=== PATIENT | female | born 1960 | race Caucasian/White ===

== ENCOUNTER 2017-03-01 17:09 | Inpatient (IN) | payer MEDICARE ==
--- OUTSIDE RECORDS SUMMARY | 2017-03-01 17:12 | XMS | Clinical Summary ---
:[address] [facility] Address [address] [place] [address] Phone Care Team Providers Name Role Phone , Primary Care Provider Unavailable Allergies Not on File Current Medications Not on file Active Problems Not on file Social History Tobacco Use Types Packs/Day Years Used Date Never Assessed Sex Assigned at Date Recorded Not on file Last Filed Vital Signs Not on file Plan of Treatment Not on file Results Not on filefrom Last 3 Months
[2017-03-01 18:35] LABS: #Monocytes 0.3 thou/uL (0.11-0.59); #Neutrophils 1.8 thou/uL (1.40-6.50); %Basophils 0.4 % (0.0-1.0); %Eosinophils 1.2 % (0.0-10.0); %Lymphocytes 31.1 % (21.0-51.0); Hematocrit 28.6 % (36.0-47.0); Mean Platelet Volume 6.5 fL (7.4-10.4); Red Blood Cell (RBC) Count 2.88 mill/uL (4.20-5.40); White Blood Cell (WBC) Count 3.1 thou/uL (4.8-10.8)
[2017-03-01] MEDS ORDERED: Fentanyl 100 MCG/2 ML VIAL ONE (18:39)
[2017-03-01 18:53] LABS: Lactic Acid - Sepsis 0.4 mmol/L (0.5-2.2)
[2017-03-01 19:10] LABS: Troponin I Less than 0.010 ng/mL (< 0.028)
--- NOTE | 2017-03-01 20:24 | PDOC.EVN ---
Event Note - Event Note Event Note: [id number] h&p dictated 1. Acute COPD exacerbation 2. H/O HTN 3. Acute bronchitis plan: see orders
[2017-03-01] MEDS ORDERED: Acetaminophen 325 MG TAB PO PRN (21:03)
[2017-03-01] MEDS ORDERED: Ondansetron HCl/PF 4 MG/2 ML Vial IVP PRN (21:03)
[2017-03-01] MEDS ORDERED: Ondansetron ODT 4 MG TAB SL PRN (21:03)
[2017-03-01] MEDS ORDERED: HYDROcodone/Acetaminophen 5/325 mg Tablet PO PRN (21:07)
[2017-03-01] MEDS ORDERED: Guaifenesin DM 100-10/5 ML UDCUP PO PRN (21:09)
[2017-03-01] MEDS ORDERED: traMADol HCl 50 MG TAB PO PRN (21:10)
[2017-03-01] MEDS ORDERED: Albuterol Sulfate 1.25 MG/3 ML NEB NEB PRN (21:10)
[2017-03-01] MEDS ORDERED: Sodium Chloride 0.45% 1,000 ML IV SCH (21:15)
[2017-03-01] MEDS: Sodium Chloride 0.9% 1,000 ML IV SCH (21:30)
[2017-03-01 21:55] LABS: Troponin I Less than 0.010 ng/mL (< 0.028)
[2017-03-01] MEDS: cefTRIAXone\\ROCEPHIN 1 GM in Sodium Chloride 0.9% 100 ML IVPB SCH (22:46)
[2017-03-01 23:12] VITALS: BMI 27.2
[2017-03-02 00:59] LABS: Troponin I Less than 0.010 ng/mL (< 0.028)
[2017-03-02 05:39] LABS: Band 14 % (5-11); Hematocrit 30.1 % (36.0-47.0); Mean Platelet Volume 6.8 fL (7.4-10.4); Neutrophil 58 % (42-75); Red Blood Cell (RBC) Count 3.06 mill/uL (4.20-5.40); White Blood Cell (WBC) Count 1.9 thou/uL (4.8-10.8)
[2017-03-02 05:45] LABS: Anion Gap 13 mmol/L (10-20); BUN (Urea Nitrogen) 6 mg/dL (9.8-20.1); Calc. Creatinine Clearance 139 mL/min (70-130); Calcium 8.3 mg/dL (7.8-10.44); Carbon Dioxide 21 mmol/L (22-29); Chloride 110 mmol/L (98-107); Estimated GFR-MDRD Greater than 90
[2017-03-02] MEDS: Levothyroxine Sodium 75 MCG TAB PO SCH (05:51)
--- NOTE | 2017-03-02 06:36 | HP ---
CHIEF COMPLAINT: Cough and dyspnea. HISTORY OF PRESENT ILLNESS: The patient is a 56-year-old female with past medical history of hypert ension, now came to the ER complaining of cough and dyspnea, cough started 3 days back, associated w ith sputum production and chest congestion, sputum yellow in color, complains of low-grade fever and chills. The patient has had dyspnea for the last few days or so, the patient went to outside ER wh ere the patient was found to be oxygen sats around 87%, so the patient was transferred here for furt her evaluation. The patient complains of some diffuse body aches. Denies any nausea, denies any vo miting at this time, but complains of vomiting with the cough. Denies any diarrhea. Denies any blo shantelle stools. PAST MEDICAL HISTORY: Hypertension. PAST SURGICAL HISTORY: Cholecystectomy, gastric ulcer repair, and . SOCIAL HISTORY: Positive for smoking, denies alcohol, denies any drugs. MEDICATIONS: Reviewed. FAMILY HISTORY: Denies any heart problems. REVIEW OF SYSTEMS: Constitutional: Positive for low-grade fever and chills. Eyes: Vision problem s. Ears: Denies any hearing loss. Neck: Denies any neck pain. Cardiovascular system: Denies an y chest pain. Respiratory System: Positive for dyspnea. Positive for cough and sputum production. Cranial Nerve System: Denies syncope. Musculoskeletal: Positive for diffuse body aches. Psych iatric: Denies anxiety. Integument: Denies any rash. All other review of systems are reviewed an d are negative. PHYSICAL EXAMINATION: CONSTITUTIONAL/VITAL SIGNS: At the time of H\T\P performed, blood pressure is 140/70, pulse ox 97% on room air, afebrile, respiration rate 18, and pulse ox 97%. GENERAL: This patient appears comfortable and appears tired and denies patent. HEENT: Nose normal. Ears normal. Teeth intact. Tongue is moist. NECK: Supple. No JVD. CARDIOVASCULAR: S1, S2 present. Regular rate and rhythm, no murmurs, no rubs, no gallops. RESPIRATORY SYSTEM: Positive for wheezing. Positive for rhonchi and crackles present. No accessor y muscle use seen. GASTROINTESTINAL: Abdomen is soft, nontender, no guarding, no organomegaly, no masses felt. MUSCULOSKELETAL: No edema. INTEGUMENTARY: No rashes seen. PSYCHIATRIC: Mood Appropriate at this time. CRANIAL NERVES INTACT: Cranial nerves intact. Follows commands. Strength intact, sensory intact. LABORATORY DATA: At the time of H\T\P performed, white count 3.1, hemoglobin 9, platelet count is 1 46. Lactic acid 0.4. BMP showed sodium 139, potassium 4.3, chloride 109, CO2 of 22, BUN 9, and cre atinine 0.7. CT chest done in the outside ER showed interlobar thickening, possible pneumonia. Tro ponin is 0.010. EKG, no acute ST changes. ASSESSMENT AND PLAN: The patient is a 56-year-old male: 1. Acute bronchitis. Plan to start the patient on breathing treatments. Plan to monitor. Plan t o start patient on IV antibiotics. Follow the patient closely. 2. Possible new onset acute chronic obstructive pulmonary disease exacerbation. Plan to start the patient on breathing treatments, IV steroids, and we will monitor the patient closely. 3. Nicotine abuse. Will place nicotine patch. 4. History of hypertension. Continue home blood pressure meds. 5. Pain, p.r.n. pain meds. The case was discussed in detail with the patient. The patient is FULL CODE.
[2017-03-02] MEDS: Heparin 5,000 UNITS/ML VIAL SC SCH ×3 (08:22→20:34)
[2017-03-02] MEDS ORDERED: Metoprolol Tartrate 25 MG TAB PO SCH (09:00)
[2017-03-02] MEDS ORDERED: Lisinopril 10 MG TAB PO SCH (09:00)
[2017-03-02] MEDS: Ribavirin 200 MG CAP PO SCH ×2 (09:01→20:36)
[2017-03-02] MEDS: Sodium Chloride 0.9% 1,000 ML IV SCH (09:01)
[2017-03-02] MEDS ORDERED: Sodium Chloride 0.9% 1,000 ML IV SCH (10:10)
[2017-03-02] MEDS ORDERED: [UNRECOGNIZED DRUG - REMARK] INH PRN (10:23)
[2017-03-02] MEDS ORDERED: METHadone HCl 10 MG TAB PO SCH (12:30)
[2017-03-02] MEDS: Lisinopril 10 MG TAB PO SCH (20:35)
[2017-03-02] MEDS: Metoprolol Tartrate 25 MG TAB PO SCH (20:35)
[2017-03-02] MEDS ORDERED: Atorvastatin Calcium 10 MG TAB PO SCH (21:00)
[2017-03-02] MEDS ORDERED: traZODone HCl 50 MG TAB PO SCH (21:00)
[2017-03-02] MEDS: cefTRIAXone\\ROCEPHIN 1 GM in Sodium Chloride 0.9% 100 ML IVPB SCH (21:25)
--- NOTE | 2017-03-02 21:27 | PRG ---
DATE OF SERVICE: 03/03/2017 SUBJECTIVE: This patient's shortness of breath is much better, still coughing though, complains of some headache and no fever, no chills. OBJECTIVE: VITAL SIGNS: Blood pressure is 183/81, temperature afebrile, pulse is 98, respirations 20. GENERAL: Patient is lying in bed, in no apparent distress right now. HEENT: Atraumatic, normocephalic. Pupils are equally round, react to light. Extraocular movements intact. Mucous membranes moist. NECK: Supple. No JVD. CHEST: Some coarse breath sounds and some end expiratory wheezes. There are no rales or rhonchi. HEART: S1, S2. No murmurs or gallops. ABDOMEN: Soft. EXTREMITIES: No cyanosis, clubbing or edema. Distal pulses present. NEUROLOGIC: Alert, awake, oriented. No cranial deficits. No sensorimotor deficits. LABORATORY DATA: Potassium is 4.1, creatinine is 0.6. WBC count is 1.9, hemoglobin is 9.5. ASSESSMENT AND PLAN: 1. Acute chronic obstructive pulmonary disease exacerbation with acute bronchitis. Continue antibi otics, neb treatments and steroids. The patient is doing well, will transition to p.o. steroids in the morning. 2. Tobacco use. The patient has been counseled. 3. Chronic pain, on methadone. We will continue that. Patient complains of some headache. We erma l use Tylenol p.r.n. 4. Hypertension. We will monitor the patient and increased blood pressure medications as needed. Lisinopril has been increased to 10 mg p.o. b.i.d. 5. Hypothyroidism, stable. 6. Sequential compression devices for deep venous thrombosis prophylaxis. I will follow the labs and do the need.
[2017-03-03 05:19] LABS: #Lymphocytes 0.4 thou/uL (1.20-3.40); #Monocytes 0.1 thou/uL (0.11-0.59); #Neutrophils 2.1 thou/uL (1.40-6.50); %Basophils 0.6 % (0.0-1.0); %Eosinophils 1.3 % (0.0-10.0); %Monocytes 3.9 % (0.0-10.0); Hematocrit 29.2 % (36.0-47.0); Mean Platelet Volume 7.5 fL (7.4-10.4); Red Blood Cell (RBC) Count 2.99 mill/uL (4.20-5.40); White Blood Cell (WBC) Count 2.7 thou/uL (4.8-10.8)
[2017-03-03] MEDS: Levothyroxine Sodium 75 MCG TAB PO SCH (05:20)
[2017-03-03 05:32] LABS: Anion Gap 12 mmol/L (10-20); BUN (Urea Nitrogen) 8 mg/dL (9.8-20.1); Calc. Creatinine Clearance 139 mL/min (70-130); Calcium 8.7 mg/dL (7.8-10.44); Carbon Dioxide 18 mmol/L (22-29); Chloride 113 mmol/L (98-107); Estimated GFR-MDRD Greater than 90
[2017-03-03] MEDS ORDERED: METHadone HCl 10 MG TAB PO SCH (09:00)
[2017-03-03] MEDS ORDERED: Spiriva 18 MCG CAP (Box of 5 Caps) INH SCH (09:00)
[2017-03-03] MEDS: Heparin 5,000 UNITS/ML VIAL SC SCH (09:13)
[2017-03-03] MEDS: Lisinopril 10 MG TAB PO SCH (09:14)
[2017-03-03] MEDS: Metoprolol Tartrate 25 MG TAB PO SCH (09:16)
[2017-03-03] MEDS: Ribavirin 200 MG CAP PO SCH (09:17)
[2017-03-03] MEDS ORDERED: Ondansetron HCl/PF 4 MG/2 ML Vial IVP PRN (10:09)
[2017-03-03 11:14] VITALS: TEMP 98.3
[2017-03-03 11:16] VITALS: BP 181/80
--- NOTE | 2017-03-03 22:51 | DIS ---
DATE OF ADMISSION: 03/01/2017 DATE OF DISCHARGE: 03/03/2017 DIAGNOSES ON DISCHARGE: 1. Acute bronchitis. 2. Acute on chronic obstructive pulmonary disease exacerbation. 3. Hypertension. 4. Tobacco use. 5. Chronic pain, on methadone. 6. Hypothyroidism. DISCHARGE MEDICATIONS: The patient's discharge medications include all home medications plus Levaqu in 500 mg p.o. daily for 7 days. BRIEF HOSPITAL COURSE: A 56-year-old, pleasant lady came into the hospital with shortness of breath . Please refer to the admitting physician's H\T\P for further details. She was diagnosed to have s ome upper respiratory tract infection in the form of acute bronchitis and some wheezes and exacerbat ion of COPD. She was put on IV steroids, antibiotics, and neb treatments. She improved with this t reatment. Right now, she is medically stable. She is moving around and feels at baseline. She is asked to quit smoking. The patient is right now medically stable to be discharged. PHYSICAL EXAMINATION: VITAL SIGNS: The patient at the time of discharge had blood pressure of 166/77, pulse of 80, temper ature afebrile, breathing comfortably on room air. GENERAL: The patient was lying in bed, in no apparent distress. HEENT: Atraumatic and normocephalic. Pupils are equally round and reactive to light. Extraocular movements intact. Mucous membranes are moist. NECK: Supple. No JVD. CHEST: Breath sounds heard. No rales or rhonchi. HEART: S1 and S2. No murmurs or gallops. ABDOMEN: Soft. EXTREMITIES: No cyanosis, clubbing, or edema. Distal pulses present. NEUROLOGIC: Alert, awake, oriented. No cranial deficits. No sensorimotor deficits. The patient is right now medically stable to be discharged home with outpatient followup with PCP. She was asked to come back to the emergency room in case symptoms recur. Total time for this discharge took 35 minutes.
== END 2017-03-03 14:00 | disposition home or self-care (01) | DRG 192 ==
LOC: ERS 17:09 → 2NO 21:10
PROVIDERS: ADMIT Internal Medicine; ATTEND Internal Medicine
DX: J44.0 Chronic obstructive pulmonary disease with (acute) lower respiratory infection (principal); I10 Essential (primary) hypertension; F17.210 Nicotine dependence, cigarettes, uncomplicated; J44.1 Chronic obstructive pulmonary disease with (acute) exacerbation; J20.9 Acute bronchitis, unspecified; G89.29 Other chronic pain; F11.99 Opioid use, unspecified with unspecified opioid-induced disorder; E03.9 Hypothyroidism, unspecified; Z86.19 Personal history of other infectious and parasitic diseases; Z86.73 Personal history of transient ischemic attack (TIA), and cerebral infarction without residual deficits; I25.2 Old myocardial infarction; R09.02 Hypoxemia
CPT/HCPCS: 36415; 36416; 80048; 83605; 85007; 85025; 85027; 93005; 94640; 96374; A4216; G8978-GP-CJ; G8979-GP-CJ; G8980-GP-CJ; J0360; J0696; J1644; J1956; J2270; J2405; J2920; J3010; J7050; J7620

== ENCOUNTER 2017-07-08 13:00 | Inpatient (IN) | payer MEDICARE ==
[2017-07-08 14:13] LABS: #Eosinphils 0.1 thou/uL (0.0-0.7); #Lymphocytes 1.6 thou/uL (1.20-3.40); #Monocytes 0.5 thou/uL (0.11-0.59); %Basophils 0.7 % (0.0-1.0); %Lymphocytes 21.6 % (21.0-51.0); %Monocytes 6.5 % (0.0-10.0); %Neutrophils 69.2 % (42.0-75.0); Hemoglobin 7.7 g/dL (12.0-16.0); Mean Corpuscular HGB CONC 28.8 g/dL (32.0-36.0); Mean Corpuscular Hemoglobin 23.7 pg (27.0-31.0); Mean Corpuscular Volume 82.1 fl (81.0-99.0); Mean Platelet Volume 8.2 fL (7.4-10.4); Platelet Count 186 thou/uL (130-400); RBC Distribution Width 16.9 % (11.5-14.5); Red Blood Cell (RBC) Count 3.26 mill/uL (4.20-5.40); White Blood Cell (WBC) Count 7.2 thou/uL (4.8-10.8)
[2017-07-08 14:34] LABS: ALT (SGPT) Less than 7 U/L (8-55); AST (SGOT) 12 U/L (5-34); Albumin 3.8 g/dL (3.5-5.0); Alkaline Phosphatase 106 U/L (40-150); Anion Gap 13 mmol/L (10-20); BUN (Urea Nitrogen) 8 mg/dL (9.8-20.1); Bilirubin, Total 0.5 mg/dL (0.2-1.2); Calc. Creatinine Clearance 0 mL/min (70-130); Calcium 9.2 mg/dL (7.8-10.44); Carbon Dioxide 22 mmol/L (22-29); Chloride 106 mmol/L (98-107); Estimated GFR-MDRD 80; Globulin 3.1 g/dL (2.4-3.5); Glucose 75 mg/dL (70-105); Lipase 16 U/L (8-78); Potassium 3.9 mmol/L (3.5-5.1); Protein, Total 6.9 g/dL (6.0-8.3); Sodium 137 mmol/L (136-145)
[2017-07-08 15:51] LABS: PTT 36.3 SEC (22.9-36.1); Prothrombin Time 13.7 SEC (12.0-14.7)
[2017-07-08] MEDS ORDERED: Pantoprazole 40 MG VIAL ONE (16:01)
[2017-07-08 16:07] LABS: CKMB 2.3 ng/mL (0-6.6); Troponin I Less than 0.010 ng/mL (< 0.028)
--- NOTE | 2017-07-08 16:08 | RAD ---
CHEST ONE VIEW 07/08/17 HISTORY: Hematemesis. COMPARISON: 08/13/16. FINDINGS: Cardiac silhouette is magnified by projection. Pulmonary vasculature remains upper limits of normal. Lungs are hyperinflated. Mediastinum is midline with aortic calcification. There is no confluent air space consolidation or evidence of free subdiaphragmatic gas. Calcified granulomata are consistent wi th healed granulomatous disease. decontamination technician leads overlie the chest. IMPRESSION: 1. COPD. 2. Atherosclerosis. POS: H
[2017-07-08] MEDS ORDERED: Zolpidem Tartrate 5 MG TAB PO PRN (19:21)
[2017-07-08] MEDS ORDERED: Artificial Tears 18 DROP/0.9 ML EA EYE PRN (19:21)
[2017-07-08] MEDS ORDERED: hydrALAZINE 20 MG/ML VIAL SLOW IVP PRN (19:21)
[2017-07-08] MEDS ORDERED: Ondansetron ODT 4 MG TAB PO PRN (19:21)
[2017-07-08] MEDS ORDERED: Pantoprazole 80 MG in Sodium Chloride 0.9% 100 ML IVPB SCH (19:21)
[2017-07-08] MEDS ORDERED: Loperamide HCl 2 MG CAP PO PRN (19:21)
[2017-07-08] MEDS ORDERED: Eucerin (Mineral Oil/Petrolatum,White) 30 gm Jar TOP PRN (19:21)
[2017-07-08] MEDS ORDERED: Acetaminophen 325 MG TAB PO PRN (19:21)
[2017-07-08] MEDS ORDERED: Mag-Al 1200 mg/1200 mg/30 ML UDCUP PO PRN (19:21)
[2017-07-08] MEDS ORDERED: Ondansetron HCl/PF 4 MG/2 ML Vial IVP PRN (19:21)
[2017-07-08] MEDS ORDERED: Senokot 8.6 MG TAB PO PRN (19:21)
[2017-07-08] MEDS ORDERED: Diabetic Tussin 200 MG/10 ML UDCUP PO PRN (19:21)
[2017-07-08] MEDS ORDERED: Chloraseptic Spray 180 ml Bottle PO PRN (19:21)
[2017-07-08] MEDS ORDERED: cloNIDine 0.1 MG TAB PO PRN (19:21)
[2017-07-08] MEDS ORDERED: Sodium Chloride 0.65% Nasal 44 ML BOT EA NARE PRN (19:21)
[2017-07-08] MEDS ORDERED: Milk Of Magnesia 30 ML UDCUP PO PRN (19:21)
[2017-07-08] MEDS ORDERED: Loratadine 10 MG TAB PO PRN (19:21)
[2017-07-08] MEDS: Morphine 2 MG/ML SYRINGE SLOW IVP PRN (20:07)
[2017-07-08] MEDS: Sodium Chloride 0.9% 1,000 ML IV SCH (20:10)
[2017-07-08] MEDS ORDERED: Nicotine 14 MG PATCH TD SCH (20:30)
[2017-07-08] MEDS ORDERED: PROVENTIL INHALER 6.7 G (200 INHALATIONS) INH PRN (21:06)
[2017-07-08] MEDS ORDERED: traMADol HCl 50 MG TAB PO PRN (21:06)
[2017-07-08] MEDS: Mometasone/Formoterol 120 PUFF INHALER INH SCH (21:27)
--- NOTE | 2017-07-08 22:15 | HP ---
PRIMARY CARE PHYSICIAN: Alonso Dodson M.D. REASON FOR ADMISSION: Acute upper gastrointestinal bleed, anemia due to acute blood loss. HISTORY OF PRESENT ILLNESS: A 57-year-old female who has history of hypothyroidism, hypertension, ga stroesophageal reflux disease, and COPD who was experiencing generalized weakness, fatigue for the la st 2 months. The patient was having intermittent epigastric pain, nausea, and vomiting. Yesterday, the patient had episode of vomiting. She vomited two times and each time she reports about cup amoun t of blood came out. She did not have any further hematemesis. She denies any episodes of vomiting followed by hematemesis. She did not have any black tarry stool because she did not have any bowel m ovement. She was feeling dizziness, lightheadedness. The patient is taking naproxen for her chronic arthritic pain, but she reports that she requires at least 2 or 3 times naproxen per week. As the p atient's symptoms were not getting better and she was feeling day by day more weak that is why she ma de appointment with primary care physician and primary care physician did routine blood test after th at she was told to come to the ER because of low blood count. Today, she decided to come to the ER p er primary care physician request. She denies any bright red blood per rectum. She denies any hemat ochezia. She does not have any history of esophageal varices, but she reports that she was diagnosed with peptic ulcer disease in the past and she required transfusion in the past. She also had endosc opy by Dr. Cheng several years ago. She had remote history of alcoholism, but she is currently not dr inking alcohol. She is smoking about 1 pack per day. The patient was having about 8/10 epigastric p ain which was getting worse with food, associated with nausea and intermittent vomiting. She denies any fever or chills. She denies any UTI symptoms. She denies any chest pain. She denies any syncop e. She denies any fall. She denies any other chronic pain. She denies any focal neurological sympt oms. ALLERGIES: The patient is allergic to REGLAN. CURRENT HOME MEDICATIONS: Proventil HFA 2 puffs q.4 hourly, clonidine 0.3 mg p.o. t.i.d., Nexium 20 mg p.o. daily, lisinopril 20 mg p.o. daily, Spiriva 18 mcg inhalation daily, tramadol 50 mg q.4 hourl y p.r.n., Ambien 5 mg p.o. at bedtime. REVIEW OF SYSTEMS: The following complete review of systems was negative, unless otherwise mentioned in the HPI or below: Constitutional: Weight loss or gain, ability to conduct usual activities. Skin: Rash, itching. Eyes: Double vision, pain. ENT/Mouth: Nose bleeding, neck stiffness, pain, tenderness. Cardiovascular: Palpitations, dyspnea on exertion, orthopnea. Respiratory: Shortness of breath, wheezing, cough, hemoptysis, fever or night sweats. Gastrointestinal: Poor appetite, abdominal pain, heartburn, nausea, vomiting, constipation, or diarr hea. Genitourinary: Urgency, frequency, dysuria, nocturia. Musculoskeletal: Pain, swelling. Neurologic/Psychiatric: Anxiety, depression. Allergy/Immunologic: Skin rash, bleeding tendency. Please see my HPI for pertinent positives and negatives. All other review of systems reviewed and ne gative except as mentioned in the HPI. PAST MEDICAL HISTORY: Hypertension, hypothyroidism, history of peptic ulcer disease with history of upper gastrointestinal bleed, history of OR in 2015, history of TIA, history of hepatitis C which was treated, COPD, tobacco abuse disorder, osteoarthritis. PAST SURGICAL HISTORY: Cholecystectomy, hysterectomy, and upper endoscopy. PAST PSYCHIATRIC HISTORY: Reviewed and negative. SOCIAL HISTORY: The patient is smoking about 1 pack per day. She is a former alcoholic. She quit d rinking alcohol for 5 years ago. She is a former drug abuser and abuses marijuana, but she is clean for the last several years. She lives at home by herself. FAMILY HISTORY: No strong family history of premature coronary artery disease, stroke or cancer. EMERGENCY ROOM COURSE: The patient is given Protonix 80 mg push. PHYSICAL EXAMINATION: VITAL SIGNS: On arrival, blood pressure 139/76, pulse 88, respiratory rate 18, temperature 98.2, sat uration 97% on room air, and weight 86.1 kilograms. GENERAL: The patient is in mild distress due to epigastric abdominal discomfort. HEENT: Head: Normocephalic, atraumatic. Eyes: Conjunctivae pale. Extraocular muscle intact. No nystagmus. Pupils round, reactive to light. Normal eyelids. ENT: Oropharynx within normal limits. Moist mucous membranes. No oral lesion. No pharyngeal erythema. No exudate. NECK: Supple, no JVD, no thyromegaly, no carotid bruit, no meningeal signs of irritation. LUNGS: Clear to auscultation without any rhonchi or rales. CARDIAC: S1, S2 regular. No murmur, no gallop, no rub. ABDOMEN: Epigastric tenderness, no Emerson sign. No occult blood in stool examination. No peritonea l signs, no guarding, no rigidity, no rebound, no suprapubic tenderness. BACK: Unremarkable, no CVA tenderness. EXTREMITIES: Upper extremities: Passive movement of all joints are normal. Lower extremities: No edema. Good peripheral pulsation. SKIN: No skin rash, otherwise pallor present. HEMATOLOGIC: No lymphadenopathy. PSYCHIATRIC: Normal affect. NEUROLOGIC: Nonfocal examination. The patient is moving all four limbs, plantar bilateral flexor. SIGNIFICANT LABORATORY DATA: EKG based on my review reveals normal sinus rhythm, left atrial enlarge ment. Chest x-ray based on my review, no acute cardiopulmonary process. CBC: WBC of 7.2, hemoglobi n 7.7, platelet 186. INR 1.0. BMP: Sodium 137, potassium 3.9, chloride 106, carbon dioxide 22, ani on gap 13, BUN 8, creatinine 0.75, glucose 75, calcium 9.2. LFT: AST 12, ALT less than 7, alkaline phosphatase 106, albumin 3.8, lipase 16, CK 77, CK-MB 2.3, troponin I less than 0.010. ASSESSMENT/IMPRESSION: 1. Nausea and vomiting. 2. Epigastric abdominal pain. 3. Hematemesis. 4. Anemia due to acute blood loss. 5. Tobacco abuse disorder. 6. Intermittent nonsteroidal antiinflammatory drug abuse. 7. Gastroesophageal reflux disease/peptic ulcer disease. 8. Chronic obstructive pulmonary disease. PLAN: 1. Full admission to medical floor. We will resume patient's home medication for high blood pressur e. Gastroenterology consultation. Continue gentle IV fluid, monitor H and H q.4 hourly. Nicotine p atch and smoking cessation counseling given. Protonix drip if hemoglobin drops below 7, then we will consider transfusion. We will repeat labs tomorrow. We will keep her n.p.o. after midnight. The p atient was given education to avoid NSAIDs. 2. Deep venous thrombosis prophylaxis. Only sequential compression devices, but no Lovenox because of bleeding. 3. Gastrointestinal prophylaxis. The patient is already on Protonix drip. 4. Code status: The patient is FULL CODE. The patient does not have any surrogate decision maker. Disposition plan based on clinical course. We are expecting patient's stay in hospital more than 2 m idnights. Plan of care discussed with the patient in detail.
[2017-07-08 22:50] LABS: Hemoglobin 6.8 g/dL (12.0-16.0)
[2017-07-09 01:52] LABS: Hemoglobin 6.7 g/dL (12.0-16.0)
[2017-07-09] MEDS: Morphine 2 MG/ML SYRINGE SLOW IVP PRN ×3 (03:42→14:48)
[2017-07-09 06:05] LABS: #Eosinphils 0.1 thou/uL (0.0-0.7); #Monocytes 0.3 thou/uL (0.11-0.59); #Neutrophils 2.3 thou/uL (1.40-6.50); %Basophils 1.1 % (0.0-1.0); %Lymphocytes 27.5 % (21.0-51.0); %Monocytes 8.1 % (0.0-10.0); %Neutrophils 60.2 % (42.0-75.0); Hemoglobin 8.1 g/dL (12.0-16.0); Mean Corpuscular HGB CONC 30.1 g/dL (32.0-36.0); Mean Platelet Volume 9.2 fL (7.4-10.4); Platelet Count 135 thou/uL (130-400); RBC Distribution Width 17.4 % (11.5-14.5); Red Blood Cell (RBC) Count 3.25 mill/uL (4.20-5.40); White Blood Cell (WBC) Count 3.8 thou/uL (4.8-10.8)
[2017-07-09 06:29] LABS: ALT (SGPT) 7 U/L (8-55); AST (SGOT) 10 U/L (5-34); Albumin 3.3 g/dL (3.5-5.0); Alkaline Phosphatase 95 U/L (40-150); Anion Gap 9 mmol/L (10-20); BUN (Urea Nitrogen) 6 mg/dL (9.8-20.1); Bilirubin, Total 0.4 mg/dL (0.2-1.2); Calc. Creatinine Clearance 140 mL/min (70-130); Calcium 8.4 mg/dL (7.8-10.44); Carbon Dioxide 23 mmol/L (22-29); Chloride 112 mmol/L (98-107); Estimated GFR-MDRD Greater than 90; Globulin 2.7 g/dL (2.4-3.5); Glucose 72 mg/dL (70-105); Sodium 140 mmol/L (136-145)
[2017-07-09] MEDS ORDERED: Sodium Chloride 0.9% 1,000 ML IV SCH (07:45)
[2017-07-09] MEDS: Mometasone/Formoterol 120 PUFF INHALER INH SCH ×2 (08:12→19:31)
[2017-07-09] MEDS: cloNIDine 0.3 MG TAB PO SCH ×3 (08:45→20:58)
[2017-07-09] MEDS ORDERED: Spiriva 18 MCG CAP (Box of 5 Caps) INH SCH (09:00)
[2017-07-09] MEDS: Sodium Chloride 0.9% 1,000 ML IV SCH (10:57)
--- NOTE | 2017-07-09 11:05 | PDOC.PN ---
- Subjective Encounter Start Date: 07/09/17 Encounter Start Time: 09:10 -: old records requested/rev Patient seen and examined. No new complaints. No overnight events no nausea and vomiting, she was given 1 unit prbc last night, no abdominal pain today - Objective Resuscitation Status: Resuscitation Status FULL:Full Resuscitation MAR Reviewed: Yes Vital Signs & Weight: Vital Signs (12 hours) Temp Pulse Resp BP BP Pulse Ox 07/09/17 08:45 177/79 H 07/09/17 08:00 98.1 F 88 18 177/79 H 94 L 07/09/17 03:31 98.1 F 86 16 150/72 H 94 L 07/08/17 23:48 98.4 F 81 16 142/67 H 93 L Weight Weight 189 lb 9.561 oz I&O: 07/08/17 07/09/17 07/10/17 06:59 06:59 06:59 Intake Total 0 350 Balance 0 350 Result Diagrams: 07/09/17 05:36 07/09/17 05:36 Phys Exam - Physical Examination Constitutional: NAD HEENT: PERRLA, moist MMs, sclera anicteric Neck: no JVD, supple Respiratory: no wheezing, no rales, no rhonchi Cardiovascular: RRR, no significant murmur, no rub Gastrointestinal: soft, non-tender, no distention, positive bowel sounds Musculoskeletal: no edema, pulses present Neurological: non-focal, normal sensation, moves all 4 limbs Psychiatric: normal affect, A&O x 3 Skin: no rash, normal turgor Dx/Plan (1) Anemia due to acute blood loss Code(s): D62 - ACUTE POSTHEMORRHAGIC ANEMIA Status: Acute (2) Epigastric abdominal pain Code(s): R10.13 - EPIGASTRIC PAIN Status: Acute (3) Hematemesis Code(s): K92.0 - HEMATEMESIS Status: Acute (4) Nausea & vomiting Code(s): R11.2 - NAUSEA WITH VOMITING, UNSPECIFIED Status: Acute (5) COPD (chronic obstructive pulmonary disease) Status: Chronic (6) GERD (gastroesophageal reflux disease) Code(s): K21.9 - GASTRO-ESOPHAGEAL REFLUX DISEASE WITHOUT ESOPHAGITIS Status: Chronic (7) PUD (peptic ulcer disease) Code(s): K27.9 - PEPTIC ULC, SITE UNSP, UNSP AC OR CHR, W/O HEMOR OR PERF Status: Chronic (8) Tobacco abuse Code(s): Z72.0 - TOBACCO USE Status: Chronic - Plan cont current plan of care * medication reviewed as below * symptomatic treatment * continue protonix drip * GI consulted, pt is NPO so EGD can be done today if possible * repeat labs tomorrow. Review of Systems - Review of Systems ENT: negative: Ear Pain, Ear Discharge, Nose Pain, Nose Discharge, Nose Congestion, Mouth Pain, Mouth Swelling, Throat Pain, Throat Swelling, Other Respiratory: negative: Cough, Dry, Shortness of Breath, Hemoptysis, SOB with Excertion, Pleuritic Pain, Sputum, Wheezing Cardiovascular: negative: chest pain, palpitations, orthopnea, paroxysmal nocturnal dyspnea, edema, light headedness, other Gastrointestinal: negative: Nausea, Vomiting, Abdominal Pain, Diarrhea, Constipation, Melena, Hematochezia, Other Genitourinary: negative: Dysuria, Frequency, Incontinence, Hematuria, Retention , Other Musculoskeletal: negative: Neck Pain, Shoulder Pain, Arm Pain, Back Pain, Hand Pain, Leg Pain, Foot Pain, Other Skin: negative: Rash, Lesions, Igor, Bruising, Other - Medications/Allergies Allergies/Adverse Reactions: Allergies Allergy/AdvReac Type Severity Reaction Status Date / Time metoclopramide HCl Allergy Severe Verified 07/08/17 20:34 [From [facility]] Medications: Current Medications Acetaminophen (Tylenol) 650 mg PO Q4H PRN PRN Reason: Headache/Fever or Pain Hydrocodone Bitart/Acetaminophen ([place] 5/325) 1 tab PO Q4H PRN PRN Reason: Moderate Pain (4-6) Al Hydroxide/Mg Hydroxide (Maalox) 30 ml PO Q6H PRN PRN Reason: Heartburn or Indigestion Albuterol Sulfate (Proventil Hfa) 2 puff INH Q4H PRN PRN Reason: SOB &/or Wheezing Albuterol/Ipratropium (Duoneb) 3 ml NEB [id number] Last Admin: 07/09/17 08:12 Dose: Not Given Albuterol/Ipratropium (Duoneb) 3 ml NEB [id number] PRN PRN Reason: SOB &/or Wheezing Artificial Tears (Tears Naturale) 0 drop EA EYE PRN PRN PRN Reason: Dry Eyes Clonidine (Catapres) 0.1 mg PO Q4H PRN PRN Reason: SBP Greater Than 170 Last Admin: 07/08/17 20:07 Dose: 0.1 mg Clonidine (Catapres) 0.3 mg PO TID [facility] Last Admin: 07/09/17 08:45 Dose: 0.3 mg Guaifenesin (Robitussin Sf) 200 mg PO Q4H PRN PRN Reason: Cough Hydralazine HCl (Apresoline) 10 mg SLOW IVP Q4H PRN PRN Reason: Systolic BP > 180 Pantoprazole Sodium 80 mg/ (Sodium Chloride) 100 mls @ 10 mls/hr IVPB INF [facility] Last Admin: 07/09/17 08:45 Dose: 100 mls Sodium Chloride (Normal Saline 0.9%) 1,000 mls @ 50 mls/hr IV .Q20H CR Loperamide HCl (Imodium) 2 mg PO PRN PRN PRN Reason: Diarrhea/Loose Stools Loratadine (Claritin) 10 mg PO DAILYPRN PRN PRN Reason: Sinus Symptoms Magnesium Hydroxide (Milk Of Magnesium) 30 ml PO DAILYPRN PRN PRN Reason: Constipation Mineral Oil/White Petrolatum (Eucerin Cream) 0 gm TOP BIDPRN PRN PRN Reason: Dry Skin Mometasone Furoate/Formoterol Fumar (Dulera 200 Mcg/5 Mcg Inhaler) 2 puff INH BID-RT [facility] Last Admin: 07/09/17 08:12 Dose: Not Given Morphine Sulfate (Morphine) 2 mg SLOW IVP Q4H PRN PRN Reason: Pain Last Admin: 07/09/17 08:43 Dose: 2 mg Ondansetron HCl (Zofran Odt) 4 mg PO Q6H PRN PRN Reason: Nausea/Vomiting Ondansetron HCl (Zofran) 4 mg IVP Q6H PRN PRN Reason: Nausea/Vomiting Phenol (Chloraseptic [place] 180 Ml Bot) 0 ml PO PRN PRN PRN Reason: Sore Throat Senna (Senokot) 2 tab PO HSPRN PRN PRN Reason: Constipation Sodium Chloride ([place] Nasal [place] 0.65%) 0 ml EA NARE QIDPRN PRN PRN Reason: Nasal Congestion Sodium Chloride (Flush - Normal Saline) 10 ml IVF Q12HR CR Last Admin: 07/09/17 08:54 Dose: 10 ml Sodium Chloride (Flush - Normal Saline) 10 ml IVF PRN PRN PRN Reason: Saline Flush Tramadol HCl (Ultram) 50 mg PO Q4H PRN PRN Reason: Pain Zolpidem Tartrate (Ambien) 5 mg PO HSPRN PRN PRN Reason: Insomnia
[2017-07-09] MEDS ORDERED: Promethazine HCl 25 MG/ML VIAL SLOW IVP PRN (13:37)
[2017-07-09] MEDS ORDERED: Ondansetron HCl/PF 4 MG/2 ML Vial IVP PRN (13:37)
[2017-07-09] MEDS ORDERED: Morphine Sulfate 2 MG/ML SYRINGE SLOW IVP PRN (13:37)
[2017-07-09] MEDS ORDERED: HYDROmorphone 2 MG/ML VIAL SLOW IVP PRN (13:37)
--- NOTE | 2017-07-09 14:07 | OP ---
DATE OF PROCEDURE: 07/09/2017 PROCEDURE: Esophagogastroduodenoscopy with biopsy. PREOPERATIVE DIAGNOSES: Hematemesis and history of cirrhosis. PROCEDURE IN DETAIL: Informed consent was obtained from the patient. She was sedated with total int ravenous anesthesia. The bite block was placed and the endoscope was advanced easily to the second p ortion of the duodenum and retroflexion was performed in the stomach. The esophagus was normal. The re were no varices. The GE junction was normal. The stomach had diffuse erythematous nonerosive gas tritis in the antrum and the proximal body. Biopsies were obtained to rule out H. pylori. There wer e no gastric varices. No peptic ulcer disease present. The pylorus and first and second portions of the duodenum were normal. IMPRESSION: 1. Nonerosive mild erythematous gastritis diffusely in the antrum and proximal body of the stomach. Biopsies were taken to rule out Helicobacter pylori. 2. Otherwise normal esophagogastroduodenoscopy. There was no bleeding source identified. She might have had a Triny-Rutherford tear, which caused the bleeding she described prior to admission. 3. There were no varices. RECOMMENDATIONS: 1. Continue proton pump inhibitor. Changes to p.o. daily and she should continue on this given the chronic NSAID use. 2. Recommend holding the NSAIDs or reducing them and changing the low-dose Tylenol instead. She can take two extra strength Tylenol up to twice per day. 3. Await additional studies including iron studies, B12 and folate, and hepatoma screening with alph a fetoprotein and ultrasound of the liver. 4. Follow trend of the hemoglobin.
[2017-07-09] MEDS ORDERED: Lidocaine 1% PF 5 ML VIAL ONE (14:26)
[2017-07-09] MEDS ORDERED: Propofol 200 MG/20 ML VIAL ONE (14:26)
--- NOTE | 2017-07-09 15:56 | CON ---
DATE OF CONSULTATION: 07/09/2017 CHIEF COMPLAINT: Vomited blood. HISTORY OF PRESENT ILLNESS: Ms. Henao is a 57-year-old woman who presented to the emergency room yes terday with having had 2 episodes of red hematemesis about a cup full. The blood was very dark she s tates. She currently denies abdominal pain, but has had some intermittent nausea and epigastric pain over the last couple of months. She has had fatigue and weakness over the last couple of months. S he has had no red blood or black stools. She takes 2-3 naproxen a day for her chronic joint pain and she has also been taking Nexium 20 mg daily. She quit drinking alcohol 7 years ago. She had EGD in 2012 that was negative for varices and negative for ulcer and that was performed due to anemia at at time in 09/2012. Prior to that, she was found to have an antral 1 cm ulcer. She had a colonoscop y in 06/2010, which was normal. 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 She had hep atitis C treated with SOVALDI and did achieve SVR (cure). COPD, gastroesophageal reflux disease, hyp ertension, hypothyroidism, peptic ulcer disease, coronary artery disease, status post MN, history of TIA. PAST SURGICAL HISTORY: Cholecystectomy, hysterectomy. FAMILY HISTORY: Negative for GI malignancy or liver disease. SOCIAL HISTORY: She smokes a pack per day. She quit drinking 7 years ago. She does have a past his tory of drug abuse. ALLERGIES: REGLAN. MEDICATIONS PRIOR TO ADMISSION: Proventil, clonidine, Nexium, lisinopril, Spiriva, tramadol, Ambien. REVIEW OF SYSTEMS: Negative x10 systems reviewed except as stated in the history of present illness. PHYSICAL EXAMINATION: VITAL SIGNS: Temperature 98.1, blood pressure 177/79, pulse 88, oxygen saturation 94%. GENERAL: She is in no acute distress. She is alert and oriented x3. HEENT: Eyes have no scleral icterus. Oropharynx is clear, without lesions. NECK: No cervical or supraclavicular lymphadenopathy. LUNGS: Clear to auscultation bilaterally. HEART: Regular rate and rhythm without murmur. ABDOMEN: Soft, nontender, nondistended, bowel sounds are present, no hepatomegaly. EXTREMITIES: No lower extremity edema. LABORATORY DATA: White blood cell count 3.8, hemoglobin was 6.7 early this morning. She received 1 unit transfusion and repeat hemoglobin this morning is 8.1. INR is 1.0, platelets 135. Creatinine 0 .61. Bilirubin 0.4, AST 10, ALT 7, alkaline phosphatase 95, albumin 3.3, lipase 16. IMPRESSION: 1. Hematemesis. She has been taking NSAIDs and certainly could have recurrent peptic ulcer. She do es have a history of cirrhosis and varices could be a consideration; however, the volume of bleeding she describes is not large. 2. Anemia, possibly of acute blood loss. She does have chronic anemia; however, going back to Febru vi of last year, ranging from 10.5, then to 9.4 in 05/2017. 3. 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 The hepatitis C virus has been cured with the medication therapy. The cirrhosis was confirmed by liver biopsy back in 2012. She q uit drinking 5-7 years ago. RECOMMENDATIONS: 1. Check iron studies, B12 and folate. 2. EGD today. 3. Hepatoma screening with alpha fetoprotein and ultrasound of the liver. 4. Proton pump inhibitor.
[2017-07-09 16:02] LABS: Iron Less than 8 ug/dL (50-170); Iron Binding Capacity, Total 379 mcg/dL (265-497)
[2017-07-09] MEDS: HYDROcodone/Acetaminophen 5/325 mg Tablet PO PRN (19:55)
[2017-07-09] MEDS: Morphine 4 MG/ML Carpuject SLOW IVP PRN (20:59)
[2017-07-10] MEDS ORDERED: Nicotine 14 MG PATCH TOP SCH (01:00)
[2017-07-10] MEDS: Morphine 4 MG/ML Carpuject SLOW IVP PRN ×2 (02:27→07:15)
[2017-07-10 06:13] LABS: Anion Gap 9 mmol/L (10-20); BUN (Urea Nitrogen) 7 mg/dL (9.8-20.1); Calc. Creatinine Clearance 131 mL/min (70-130); Calcium 8.6 mg/dL (7.8-10.44); Carbon Dioxide 23 mmol/L (22-29); Chloride 108 mmol/L (98-107); Estimated GFR-MDRD Greater than 90; Glucose 92 mg/dL (70-105); Potassium 3.9 mmol/L (3.5-5.1); Sodium 136 mmol/L (136-145)
[2017-07-10 07:10] LABS: Folate (Folic Acid) 5.2 ng/mL (7.0-31.4)
[2017-07-10 07:18] LABS: #Eosinphils 0.1 thou/uL (0.0-0.7); #Lymphocytes 1.3 thou/uL (1.20-3.40); #Monocytes 0.3 thou/uL (0.11-0.59); #Neutrophils 2.4 thou/uL (1.40-6.50); %Eosinophils 1.9 % (0.0-10.0); %Lymphocytes 31.6 % (21.0-51.0); %Monocytes 7.6 % (0.0-10.0); Hemoglobin 9.4 g/dL (12.0-16.0); Hypochromia SLIGHT = 6-15 cells (100X) (0-5/hpf); MDiff Complete? YES; Mean Corpuscular HGB CONC 29.8 g/dL (32.0-36.0); Mean Corpuscular Hemoglobin 24.9 pg (27.0-31.0); Mean Corpuscular Volume 83.6 fl (81.0-99.0); Mean Platelet Volume 9.1 fL (7.4-10.4); PLT Morphology Comment Appears Decreased; Platelet Count 122 thou/uL (130-400); Polychromasia SLIGHT = 2-3 cells (100X) (0-2/hpf); RBC Distribution Width 17.9 % (11.5-14.5); Red Blood Cell (RBC) Count 3.79 mill/uL (4.20-5.40); White Blood Cell (WBC) Count 4.2 thou/uL (4.8-10.8)
[2017-07-10 07:51] VITALS: BP 137/72; TEMP 97.9
[2017-07-10 08:35] VITALS: BMI 26.6
--- NOTE | 2017-07-10 08:43 | ULT ---
RIGHT UPPER QUADRANT ULTRASOUND: Date: 07/10/17 HISTORY: Abdominal pain, concern for cirrhosis. FINDINGS: The patient is post cholecystectomy. The common duct measures 6.0 mm in diameter. The liver demonstra martha fairly homogeneous echotexture without focal mass or ductal dilatation. There is mild irregularit y of the hepatic margins. The tail of the pancreas is obscured by bowel gas. The visualized portions of the pancreas and right kidney are unremarkable. No free fluid is seen in Morison's pouch. IMPRESSION: 1. Status post cholecystectomy. 2. Mild irregularity of the liver margins, which may be due to early cirrhosis. POS: ARCELIA
[2017-07-10] MEDS ORDERED: Folic Acid 1 MG TAB PO SCH (09:00)
[2017-07-10] MEDS: Mometasone/Formoterol 120 PUFF INHALER INH SCH (09:07)
[2017-07-10] MEDS: cloNIDine 0.3 MG TAB PO SCH (09:12)
--- NOTE | 2017-07-10 10:10 | PDOC.PN ---
- Subjective Encounter Start Date: 07/10/17 Encounter Start Time: 07:00 Patient seen and examined. No new complaints. No overnight events - Objective Resuscitation Status: Resuscitation Status FULL:Full Resuscitation MAR Reviewed: Yes Vital Signs & Weight: Vital Signs (12 hours) Temp Pulse Resp BP BP Pulse Ox 07/10/17 09:12 137/72 07/10/17 08:00 97.9 F 63 16 95 07/10/17 07:50 97.9 F 63 16 137/72 95 07/10/17 04:00 97 Weight Weight 190 lb 11.198 oz I&O: 07/09/17 07/10/17 07/11/17 06:59 06:59 06:59 Intake Total 0 1300 Balance 0 1300 Result Diagrams: 07/10/17 05:34 07/10/17 05:34 Phys Exam - Physical Examination Constitutional: NAD HEENT: PERRLA, moist MMs, sclera anicteric Neck: no JVD, supple Respiratory: no wheezing, no rales, no rhonchi Cardiovascular: RRR, no significant murmur, no rub Gastrointestinal: soft, non-tender, no distention, positive bowel sounds Musculoskeletal: no edema, pulses present Neurological: non-focal, normal sensation, moves all 4 limbs Psychiatric: normal affect, A&O x 3 Skin: no rash, normal turgor Dx/Plan (1) Anemia due to acute blood loss Code(s): D62 - ACUTE POSTHEMORRHAGIC ANEMIA Status: Acute (2) Epigastric abdominal pain Code(s): R10.13 - EPIGASTRIC PAIN Status: Acute (3) Hematemesis Code(s): K92.0 - HEMATEMESIS Status: Acute (4) Nausea & vomiting Code(s): R11.2 - NAUSEA WITH VOMITING, UNSPECIFIED Status: Acute (5) COPD (chronic obstructive pulmonary disease) Status: Chronic (6) GERD (gastroesophageal reflux disease) Code(s): K21.9 - GASTRO-ESOPHAGEAL REFLUX DISEASE WITHOUT ESOPHAGITIS Status: Chronic (7) PUD (peptic ulcer disease) Code(s): K27.9 - PEPTIC ULC, SITE UNSP, UNSP AC OR CHR, W/O HEMOR OR PERF Status: Chronic (8) Tobacco abuse Code(s): Z72.0 - TOBACCO USE Status: Chronic - Plan cont current plan of care * medication reviewed as below * symptomatic treatment * see discharge summery * US report noted * outpt follow up advised. Review of Systems - Review of Systems ENT: negative: Ear Pain, Ear Discharge, Nose Pain, Nose Discharge, Nose Congestion, Mouth Pain, Mouth Swelling, Throat Pain, Throat Swelling, Other Respiratory: negative: Cough, Dry, Shortness of Breath, Hemoptysis, SOB with Excertion, Pleuritic Pain, Sputum, Wheezing Cardiovascular: negative: chest pain, palpitations, orthopnea, paroxysmal nocturnal dyspnea, edema, light headedness, other Gastrointestinal: negative: Nausea, Vomiting, Abdominal Pain, Diarrhea, Constipation, Melena, Hematochezia, Other Genitourinary: negative: Dysuria, Frequency, Incontinence, Hematuria, Retention , Other Musculoskeletal: negative: Neck Pain, Shoulder Pain, Arm Pain, Back Pain, Hand Pain, Leg Pain, Foot Pain, Other Skin: negative: Rash, Lesions, Igor, Bruising, Other - Medications/Allergies Allergies/Adverse Reactions: Allergies Allergy/AdvReac Type Severity Reaction Status Date / Time metoclopramide HCl Allergy Severe Verified 07/08/17 20:34 [[facility] [place] Medications: Current Medications Acetaminophen (Tylenol) 650 mg PO Q4H PRN PRN Reason: Headache/Fever or Pain Hydrocodone Bitart/Acetaminophen ([place] 5/325) 1 tab PO Q4H PRN PRN Reason: Moderate Pain (4-6) Last Admin: 07/09/17 19:55 Dose: 1 tab Al Hydroxide/Mg Hydroxide (Maalox) 30 ml PO Q6H PRN PRN Reason: Heartburn or Indigestion Albuterol Sulfate (Proventil Hfa) 2 puff INH Q4H PRN PRN Reason: SOB &/or Wheezing Albuterol/Ipratropium (Duoneb) 3 ml NEB [id number] [facility] Last Admin: 07/10/17 09:07 Dose: Not Given Albuterol/Ipratropium (Duoneb) 3 ml NEB [id number] PRN PRN Reason: SOB &/or Wheezing Artificial Tears (Tears Naturale) 0 drop EA EYE PRN PRN PRN Reason: Dry Eyes Clonidine (Catapres) 0.1 mg PO Q4H PRN PRN Reason: SBP Greater Than 170 Clonidine (Catapres) 0.3 mg PO TID [facility] Last Admin: 07/10/17 09:12 Dose: 0.3 mg Folic Acid (Folvite) 1 mg PO DAILY [facility] Last Admin: 07/10/17 09:13 Dose: 1 mg Guaifenesin (Robitussin Sf) 200 mg PO Q4H PRN PRN Reason: Cough Hydralazine HCl (Apresoline) 10 mg SLOW IVP Q4H PRN PRN Reason: Systolic BP > 180 Sodium Chloride (Normal Saline 0.9%) 1,000 mls @ 50 mls/hr IV .Q20H [facility] Last Admin: 07/10/17 07:18 Dose: 1,000 mls Loperamide HCl (Imodium) 2 mg PO PRN PRN PRN Reason: Diarrhea/Loose Stools Loratadine (Claritin) 10 mg PO DAILYPRN PRN PRN Reason: Sinus Symptoms Magnesium Hydroxide (Milk Of Magnesium) 30 ml PO DAILYPRN PRN PRN Reason: Constipation Mineral Oil/White Petrolatum (Eucerin Cream) 0 gm TOP BIDPRN PRN PRN Reason: Dry Skin Mometasone Furoate/Formoterol Fumar (Dulera 200 Mcg/5 Mcg Inhaler) 2 puff INH BID-RT [facility] Last Admin: 07/10/17 09:07 Dose: Not Given Morphine Sulfate (Morphine) 2 mg SLOW IVP Q4H PRN PRN Reason: Pain Last Admin: 07/10/17 07:15 Dose: 2 mg Nicotine (Nicoderm Patch) 14 mg TOP Q24HR [facility] Last Admin: 07/10/17 02:29 Dose: 14 mg Ondansetron HCl (Zofran Odt) 4 mg PO Q6H PRN PRN Reason: Nausea/Vomiting Ondansetron HCl (Zofran) 4 mg IVP Q6H PRN PRN Reason: Nausea/Vomiting Pantoprazole Sodium (Protonix) 40 mg PO DAILY [facility] Last Admin: 07/10/17 09:13 Dose: 40 mg Phenol (Chloraseptic [place] 180 Ml Bot) 0 ml PO PRN PRN PRN Reason: Sore Throat Senna (Senokot) 2 tab PO HSPRN PRN PRN Reason: Constipation Sodium Chloride ([place] Nasal [place] 0.65%) 0 ml EA NARE QIDPRN PRN PRN Reason: Nasal Congestion Sodium Chloride (Flush - Normal Saline) 10 ml IVF Q12HR CR Last Admin: 07/10/17 00:20 Dose: Not Given Sodium Chloride (Flush - Normal Saline) 10 ml IVF PRN PRN PRN Reason: Saline Flush Tramadol HCl (Ultram) 50 mg PO Q4H PRN PRN Reason: Pain Zolpidem Tartrate (Ambien) 5 mg PO HSPRN PRN PRN Reason: Insomnia Last Admin: 07/09/17 23:59 Dose: 5 mg
--- NOTE | 2017-07-10 10:45 | DIS ---
DATE OF ADMISSION: 07/08/2017 DATE OF DISCHARGE: 07/10/2017 PRIMARY CARE PHYSICIAN: Alonso Dodson M.D. DISCHARGE DISPOSITION: Home. PRIMARY DISCHARGE DIAGNOSES: Epigastric abdominal pain resolved, nausea and vomiting with hematemesi s resolved, anemia due to acute blood loss, chronic iron deficiency anemia, folate deficiency, early cirrhosis. SECONDARY DISCHARGE DIAGNOSES: Tobacco abuse disorder, peptic ulcer disease, gastroesophageal reflux disease, chronic obstructive pulmonary disease. PRIMARY PROCEDURE/OPERATION: Upper endoscopy was done by Dr. Carlos and found with erosive gastritis. There were no varices. Pathology report came back as no H. pylori. RADIOLOGICAL INVESTIGATION: Chest x-ray was normal. Abdominal ultrasound showed early cirrhosis juan nges and status post cholecystectomy. SIGNIFICANT LABORATORY DATA: WBC 4.2, hemoglobin 9.4, platelets 122. INR 1.0. Creatinine 0.65, annie ritin 9.11, folate 5.20, vitamin B12 300. LFT normal. Stool for guaiac negative. DISCHARGE MEDICATIONS: Proventil HFA 2 puffs q.4 hourly p.r.n., clonidine 0.3 mg p.o. t.i.d., vitami n B12 1000 mcg p.o. daily, ferrous sulfate 325 mg p.o. b.i.d., folic acid 1 mg p.o. daily, lisinopril 20 mg p.o. daily, Dulera 2 puffs inhalation b.i.d., Protonix 40 mg p.o. daily, tramadol 50 mg q.4 ho urly p.r.n, Ambien 5 mg p.o. at bedtime, Spiriva 18 mcg inhalation daily. CONTRAINDICATIONS: None. CODE STATUS: FULL CODE. INPATIENT CLINICAL LABORATORY TECHNICIAN: Dr. Carlos was consulted while in hospital. ALLERGIES: REGLAN. TEST RESULTS PENDING ON DISCHARGE: None. DISCHARGE PLAN: Post hospital, patient is advised to follow with primary care physician in 1 week. The patient is also advised to follow up with Dr. Carlos as an outpatient basis. HOSPITAL COURSE: A 57-year-old female who was admitted by me. Please see my HPI for further details . Patient was having nausea, vomiting, and epigastric abdominal pain. She was intermittently using naproxen at home. She also had hematemesis and her hemoglobin was dropped and that is why patient wa s advised to go to ER. Patient was admitted in hospital. She was given total of 2 units of blood tr ansfusion. She was also found with iron deficiency and folate deficiency. We consulted gastroentero logist and they did upper endoscopy and found with erosive gastritis, but H. pylori negative. Based on pathology report we did ultrasound which was showing early cirrhotic changes. This patient is adv ised to follow up with primary care physician. Her hemoglobin and hematocrit is now stable. She is completely asymptomatic. While in hospital, we provided patient counseling to avoid smoking as well as avoidance of NSAID education was given. Patient is seen and examined at bedside today. Please see my progress note from today for further de tails. All new medication prescriptions sent to her pharmacy.
[2017-07-10] MEDS: HYDROcodone/Acetaminophen 5/325 mg Tablet PO PRN (11:28)
[2017-07-10] MEDS ORDERED: Morphine 2 MG/ML SYRINGE SLOW IVP PRN (12:36)
--- NOTE | 2017-07-11 14:59 | EKG ---
Test Reason : Blood Pressure : / mmHG Vent. Rate : 079 BPM Atrial Rate : 079 BPM P-R Int : 164 ms QRS Dur : 082 ms QT Int : 424 ms P-R-T Axes : 071 028 057 degrees QTc Int : 486 ms Normal sinus rhythm Possible Left atrial enlargement Abnormal ECG Confirmed by EUGENIA MARTE DO ([id number]), technical writer and editor BRITTANY MEREDITH ([id number]) on 07/11/2017 2:58:55 PM Referred By: Confirmed By:EUGENIA MARTE DO
== END 2017-07-10 15:37 | disposition home or self-care (01) | DRG 378 ==
LOC: ERS 13:00 → ONC 15:45
PROVIDERS: ADMIT Internal Medicine; ATTEND Internal Medicine
PROC: 0DB68ZX Excision of Stomach, Via Natural or Artificial Opening Endoscopic, Diagnostic (ICD-10-PCS; principal; 2017-07-09)
PROC: 30233N1 Transfusion of Nonautologous Red Blood Cells into Peripheral Vein, Percutaneous Approach (ICD-10-PCS; 2017-07-09)
DX: K92.2 Gastrointestinal hemorrhage, unspecified (principal); D62 Acute posthemorrhagic anemia; K70.30 Alcoholic cirrhosis of liver without ascites; B19.20 Unspecified viral hepatitis C without hepatic coma; F10.21 Alcohol dependence, in remission; D50.9 Iron deficiency anemia, unspecified; E03.9 Hypothyroidism, unspecified; K29.70 Gastritis, unspecified, without bleeding; K92.0 Hematemesis; I10 Essential (primary) hypertension; J44.9 Chronic obstructive pulmonary disease, unspecified; F17.210 Nicotine dependence, cigarettes, uncomplicated; Z88.8 Allergy status to other drugs, medicaments and biological substances; I25.2 Old myocardial infarction; Z86.73 Personal history of transient ischemic attack (TIA), and cerebral infarction without residual deficits; M19.90 Unspecified osteoarthritis, unspecified site; K21.9 Gastro-esophageal reflux disease without esophagitis; R11.2 Nausea with vomiting, unspecified; E61.1 Iron deficiency
CPT/HCPCS: 36415; 36430; 71045; 76705; 80048; 80053; 82274; 82550; 82553; 82607; 82728; 82746; 83540; 83550; 83690; 84484; 85014; 85018; 85025; 85610; 85730; 86850; 86900; 86901; 86922; 88305; 88312; 93005; 96374; A4216; C9113; J2001; J2270; J2704; J7050; J7620; P9016

== ENCOUNTER 2018-04-03 04:15 | Inpatient (IN) | payer MEDICARE ==
[2018-04-03] MEDS ORDERED: Acetaminophen 500 MG TAB ONE (05:50)
[2018-04-03] MEDS ORDERED: METHadone HCl 10 MG TAB PO SCH (06:30)
[2018-04-03] MEDS ORDERED: Calcium Carbonate 500 MG ChewTAB PO PRN (07:44)
[2018-04-03] MEDS ORDERED: hydrALAZINE 20 MG/ML VIAL SLOW IVP PRN (07:44)
[2018-04-03] MEDS ORDERED: Nitroglycerin 0.4 MG TAB (25 Tab Bottle) SL PRN (07:44)
[2018-04-03] MEDS ORDERED: Senokot S 8.6-50 MG TAB PO PRN ×2 (07:44)
[2018-04-03] MEDS ORDERED: Benzonatate 100 MG CAP PO PRN (07:44)
[2018-04-03] MEDS ORDERED: Diabetic Tussin 200 MG/10 ML UDCUP PO PRN (07:44)
[2018-04-03] MEDS ORDERED: Acetaminophen 325 MG TAB PO PRN (07:44)
[2018-04-03] MEDS ORDERED: cloNIDine 0.1 MG TAB PO PRN (07:44)
[2018-04-03] MEDS ORDERED: Ondansetron PF 4 MG/2 ML Vial IVP PRN (07:44)
[2018-04-03] MEDS ORDERED: Bisacodyl 5 MG TAB PO PRN ×2 (07:44)
[2018-04-03 08:36] VITALS: BMI 27.3
[2018-04-03 08:57] LABS: Troponin I Less than 0.010 ng/mL (< 0.028)
[2018-04-03] MEDS ORDERED: Famotidine 20 MG TAB PO SCH (09:00)
[2018-04-03] MEDS ORDERED: Enoxaparin Sodium 30 MG/0.3 ML SYRINGE SC SCH (09:00)
--- NOTE | 2018-04-03 13:23 | CON ---
DATE OF CONSULTATION: 04/03/2018 Fifty minutes time was spent on this consultation, of that time, greater than 50% of the time was spe nt with the patient and/or on the patient's unit in the hospital. HISTORY OF PRESENT ILLNESS: The patient is a 57-year-old female who was recently treated for a pneum onia on an outpatient basis about 2 weeks ago. Last night, her son thought she was confused. He gunjan arently had awakened her out of a deep sleep. He brought her to the emergency room in [place]. There, she was told she had pneumonia by CT of the chest and was transferred here for further therap y. The patient states she is not having cough, congestion, or fever. She tells me she has had pneumonia twice previously in her life. At one point when she was 17 years old, she had to have a thoracostom y tube placed in the left because she developed empyema. Her pulmonary history is remarkable for radha e mild asthma and she smokes about a pack per day. Otherwise, it is completely negative. PAST MEDICAL HISTORY: See above. Additionally, she is on methadone maintenance for pain pill depend ence. She has hypertension, hyperlipidemia, hypothyroidism, history of elevated cardiac enzymes, TIA , and gastrointestinal bleeding. PAST SURGICAL HISTORY: Remarkable for hysterectomy and cholecystectomy. PSYCHIATRIC HISTORY: Unremarkable. SOCIAL HISTORY: Smoking history as outlined above. She says that she does not use alcohol. ALLERGIES: REGLAN. MEDICATIONS: Prior to admission, levothyroxine, clonidine, Nexium, lisinopril, Spiriva, prednisone, Proventil, methadone. REVIEW OF SYSTEMS: Twelve-point review of systems otherwise negative. PHYSICAL EXAMINATION: VITAL SIGNS: Her temperature is 97.4, pulse 71, respirations 18, O2 sat is 93% on room air, blood pr essure 113/72. GENERAL: She is awake and alert and in no distress. HEENT: Unremarkable. NECK: Without adenopathy or JVD. LUNGS: She has very fine inspiratory crackles heard over the posterior upper lobes. She is clear an teriorly. CARDIOVASCULAR: S1, S2 regular. ABDOMEN: Soft, nontender. EXTREMITIES: No edema. LABORATORY DATA: White blood cell count 12.5, hematocrit 42.4, platelet count 149. No significant l eft shift. Sodium 137, potassium 3.3, BUN 9, creatinine 0.7. CT was reviewed. The patient has some upper lobe chronic interstitial changes present. I do not see anything acute. ASSESSMENT: 1. I doubt she has active pneumonia. I would favor the changes on CT scan being scarring. 2. Tobacco abuse. RECOMMENDATIONS: She will need a followup in 4 weeks with a chest x-ray. She can see Dr. Strong as she has seen him in the past. I think it is reasonable to discharge her home on may be a week of oral antibiotics. She definitely does not need inpatient care at this time.
--- NOTE | 2018-04-03 14:56 | SS ---
DATE OF ADMISSION: 04/03/2018 DATE OF DISCHARGE: 04/03/2018 PRIMARY CARE PHYSICIAN: Momo Cody M.D. PRIMARY SENIOR MARKETING SPECIALIST: Dr. Strong. CHIEF COMPLAINT: Shortness of breath and cough. HISTORY OF PRESENTING ILLNESS: Ms. Henao is a pleasant 57-year-old female with past medical history of "mild heart attack," significant tobacco abuse, hypertension, hypothyroidism, peptic ulcer disease with history of upper GI bleed and TIA as well as status post treatment of hepatitis C who presented to the emergency room with above-mentioned complaint. History is mainly obtained by the patient her self and electronic medical records have been reviewed. The patient presented to [facility] yesterday for complaints of shortness of breath, achiness and worsening cough with productive sputum. She reports that she was recently treated as an outpatient by her primary care physician with antibio tics and oral steroids for possible pneumonia. She got better, but then one week later, she started to get worsening cough and worsening shortness of breath. She did describe some body aches as well. She denies any fever or chills. She continues to smoke, but has gone down from 2-1/3 packets per da y to 1 pack per day of cigarettes since the last year. Upon presentation to the [facility], she was saturating 93% on room air, somewhat ta chycardic to pulse of 110. In the ER notes, it is mentioned that her oxygen saturation has dropped i n the high 80s to low 90s and the lowest being 86%. She underwent extensive evaluation in the emerge ncy room including a chest x-ray, a CT scan of the chest as well as CT angio of the chest. She did n ot have any evidence of pulmonary embolism, but scattered ground glass opacities with minimal fibrosi s and localized bronchiectasis bilaterally was seen. There was no honeycombing. Differential diagno ses include chronic hypersensitivity pneumonitis, interstitial pneumonitis or possibly nonspecific ce llular interstitial pneumonitis. She was given steroids, nebulizers, IV antibiotics and was admitted to Medicine for further evaluation. At the time of my evaluation, the patient reports that she is back to her baseline and denies any van rtness of breath and would like to go home. PAST MEDICAL HISTORY: 1. Hypertension. 2. Hypothyroidism. 3. Peptic ulcer disease with history of upper gastrointestinal bleed. 4. History of hepatitis C, status post treatment. 5. History of mild heart attack in 2015. 6. Transient ischemic attack. 7. Chronic obstructive pulmonary disease. 8. Tobacco abuse. 9. Osteoarthritis. PAST SURGICAL HISTORY: Cholecystectomy, hysterectomy, upper endoscopy. PAST PSYCHIATRIC HISTORY: Reviewed and negative. SOCIAL HISTORY: Smoking 1 pack of cigarettes per day. She is an ex-alcoholic and drug abuser, but q uit many years ago. She lives at home by herself and her son is involved in her care very much. FAMILY HISTORY: No significant family history of premature coronary disease, stroke, or cancer. ALLERGIES: Include REGLAN. HOME MEDICATIONS: Not updated as yet, but according to the ER record, she takes the following; cloni dine 0.2 mg t.i.d., levothyroxine 125 mg daily, lisinopril 20 mg daily, Nexium 40 mg daily, Proventil p.r.n., prednisone 5 mg t.i.d., Spiriva daily, methadone 90 mg once a day. REVIEW OF SYSTEMS: A 12-point review of systems was done and it is negative except for those mention ed in the history and physical. LABORATORY DATA AND IMAGING DATA: CBC shows WBCs of 12.5, hemoglobin 14, platelet count of 149. She has 79% neutrophils. No bandemia. D-dimer slightly elevated to 0.66. Serum chemistries unremarkab le. Cardiac enzymes normal. BNP 243. Urinalysis shows small leukocyte esterase and multiple squamo us epithelial cells. Urine drug screen shows methadone, otherwise unremarkable. Chest x-ray by eliud john shows bilateral interstitial changes without any definitive opacity or infiltrate. CT angio is negative for any evidence of pulmonary embolism. PHYSICAL EXAMINATION: VITAL SIGNS: Most recent vital signs, temperature 97.9, pulse of 80, respirations 18, saturating 90% on room air, 93% on nasal cannula, blood pressure 119/77. GENERAL: No acute distress, awake, alert, oriented x3, sitting at the side of the bed. HEENT: Mucous membrane is moist and pink. No oropharyngeal exudate or erythema. Head is normocepha lic, atraumatic. Pupils are equal, reactive to light and accommodation. Extraocular movement intact . NECK: Supple without any lymphadenopathy, JVD or bruit. CHEST: Clear to auscultation except for few inspiratory crackles in upper lobes. HEART: Rate and rhythm is regular without any murmur, rubs or gallops. ABDOMEN: Soft, nontender, nondistended with positive bowel sounds. EXTREMITIES: Free of any cyanosis, clubbing, or edema. NEUROLOGIC: Nonfocal. SKIN: Free of any rashes or bruises. Feel warm and dry to touch. IMPRESSION AND PLAN: 1. Hypoxia, likely due to a mild chronic obstructive pulmonary disease exacerbation. I do not belie ve that the patient has pneumonia. Change is seen more chronic and nonspecific pneumonitis. She will be empirically treated with IV antibiotics, nebulizers at this time. She has recently finished a co urse of oral steroids and we will avoid restarting her on high dose steroids at this time. I have re quested consultation with Pulmonary Medicine, Dr. Burgos who has graciously seen the patient. At th is time, he also recommends outpatient followup. The patient has seen Dr. Strong in the past in the [facility] and is encouraged to do so. At this time, she will be treated empirically with IV antibiotic an d will be discharged on a short course of oral antibiotic afterwards. I have discussed the plan with the patient who is more than happy to go home at this time. We will also obtain a transthoracic ech ocardiogram given the ground glass opacities and mildly elevated BNP. She had one echo done in 2013, which showed severe mitral regurgitation. 2. Tobacco abuse. Counseling has been provided extensively. 3. History of hypertension. Resume home medications once confirmed. We will use p.r.n. antihyperte nsives for now. 4. Chronic narcotic dependence. The patient is instructed to use her own methadone while she is her e. She was given 1 dose of 40 mg of methadone in the emergency room. DISPOSITION: Ms. Henao is being admitted for hypoxia, likely due to mild chronic obstructive pulmona ry disease exacerbation. She will be discharged later today if remains stable after the echo is done .
[2018-04-03 18:02] VITALS: BP 143/81; TEMP 97.7
[2018-04-03] MEDS ORDERED: Mometasone/Formoterol 120 PUFF INHALER INH SCH (18:30)
[2018-04-04] MEDS ORDERED: Spiriva 18 MCG CAP (Box of 5 Caps) INH SCH (07:00)
== END 2018-04-03 17:58 | disposition home or self-care (01) | DRG 191 ==
LOC: ERS 04:15 → T4-A 07:57
PROVIDERS: ADMIT Family Medicine; ATTEND Family Medicine
DX: J44.1 Chronic obstructive pulmonary disease with (acute) exacerbation (principal); F11.20 Opioid dependence, uncomplicated; J45.909 Unspecified asthma, uncomplicated; F17.210 Nicotine dependence, cigarettes, uncomplicated; I10 Essential (primary) hypertension; E78.5 Hyperlipidemia, unspecified; E03.9 Hypothyroidism, unspecified; Z86.73 Personal history of transient ischemic attack (TIA), and cerebral infarction without residual deficits; Z88.8 Allergy status to other drugs, medicaments and biological substances; Z79.899 Other long term (current) drug therapy; Z79.52 Long term (current) use of systemic steroids; K27.9 Peptic ulcer, site unspecified, unspecified as acute or chronic, without hemorrhage or perforation; I25.2 Old myocardial infarction; M19.90 Unspecified osteoarthritis, unspecified site
CPT/HCPCS: 36415; 84484; 87633; 90471; 90686; 93306; 94640; G0008; J1650; J1956; J7620

== ENCOUNTER 2018-05-17 08:22 | Outpatient (CLI) | payer MEDICARE ==
--- NOTE | 2018-05-17 13:55 | MRI ---
MRI RIGHT HIP WITHOUT CONTRAST: DATE: 04/01/18 HISTORY: M25.551 acute right hip pain. COMPARISON: Radiograph dated 04/11/18. FINDINGS: Bones: There is some subtle edema within the iliac wing symmetrically involving S1 and S2 bilaterall y lateral to the exiting nerve roots. No other stress edema is appreciated. No fracture is yet apprec iated. The SI joints are without significant fluid with only mild degenerative changes. Muscles: Muscle signal and bulk is normal. Tendons: No significant tendinosis. The direct and indirect heads of the rectus femoris are intact. Iliopsoas tendon is intact. Gluteus medius and minimus tendons are intact. No significant tearing of the hamstring tendons. Soft Tissues: The sciatic nerve is normal without extrinsic mass effect. Labrum: There is a tear of the anterior superior labrum with small osteophyte formation. There is mi ld narrowing of the cartilage. IMPRESSION: 1. Anterior superior labral tear at the chondrolabral junction extending to the substance of the lab rum. 2. Mild joint space narrowing of right hip with moderate chondral fraying. 3. Low trade edema of the sacrum bilaterally, S1 and S2, of zone 1, lateral to the exiting nerve jorge t, suggestive of stress edema. No fracture lines appreciated. No other foci of stress edema or stress fracture is appreciated. POS: SHELDON
--- NOTE | 2018-05-17 15:08 | MRI ---
MRI LUMBAR SPINE WITHOUT CONTRAST: Date: 05/17/18 HISTORY: Low back pain for 3 months, right-sided radiculopathy/sciatica. TECHNIQUE: Multiplanar, multisequence MR imaging of the lumbar spine obtained without contrast. FINDINGS: The sagittal STIR imaging demonstrates no focal area of osseous marrow edema. Assuming five lumbar-type vertebral bodies, the conus medullaris terminates at the L1 level. T12-L1: Intervertebral disc height and signal intensity is within normal limits with no significant central canal or neural foraminal stenosis. L1-2: Intervertebral disc height and signal intensity is within normal limits with no central canal or neural foraminal stenosis. L2-3: Intervertebral disc height and signal intensity is within normal limits with no significant ce ntral canal or neural foraminal stenosis. L3-4: Small foraminal disc protrusion on the left. Intervertebral disc height and signal intensity w ithin normal limits. No significant central canal or neural foraminal stenosis. L4-5: There is a disc herniation in the right foraminal region abutting the exiting right-sided L4 n erve root. There is associated moderate right neural foraminal stenosis. There is a portion of the foraminal herniation on the right which extends into the post foraminal reg ion. No associated central canal or left neural foraminal stenosis. L5-S1: There is disc space narrowing, minimal disc bulge, and disc desiccation with no associated ce ntral canal or neural foraminal stenosis. The imaged retroperitoneal structures demonstrate no acute findings. IMPRESSION: Foraminal and post foraminal disc herniation on the right at L4-5 abutting the exiting L4 nerve root. POS: [facility]
== END 2018-05-17 08:23 | disposition home or self-care (01) ==
LOC: MRI 08:22
PROVIDERS: ATTEND Family Medicine
DX: M25.551 Pain in right hip (principal); M54.41 Lumbago with sciatica, right side; M51.26 Other intervertebral disc displacement, lumbar region; S73.101A Unspecified sprain of right hip, initial encounter
CPT/HCPCS: 72148

== ENCOUNTER 2018-12-07 07:58 | Inpatient (IN) | payer MEDICARE ==
[2018-12-07] MEDS ORDERED: Sodium Chloride 0.9% 10 ML ONE (09:03)
[2018-12-07] MEDS ORDERED: Thrombin 5000 UNITS/5 ML VIAL ONE (09:03)
[2018-12-07] MEDS ORDERED: Fentanyl 250 MCG/5 ML VIAL ONE (09:27)
[2018-12-07] MEDS ORDERED: Albuterol Sulfate HFA (OR ONLY) ONE (09:27)
[2018-12-07] MEDS ORDERED: Midazolam HCl 2 mg/2 ml Vial ONE (09:35)
[2018-12-07] MEDS ORDERED: PHENYLEPHRINE-NS 100 MCG/ML 10 ML SYRINGE ONE (10:37)
[2018-12-07] MEDS ORDERED: PROPOFOL 200 MG/20 ML VIAL ONE (10:37)
[2018-12-07] MEDS ORDERED: Dexamethasone 20 MG/5 ML VIAL ONE (10:37)
[2018-12-07] MEDS ORDERED: PROVENTIL INHALER 6.7 G (200 INHALATIONS) ONE (10:37)
[2018-12-07] MEDS ORDERED: Glycopyrrolate 0.2 MG/ML 5 ML SYRINGE ONE (10:37)
[2018-12-07] MEDS ORDERED: Rocuronium Bromide 10 MG/ML (10ML VIAL) ONE (10:37)
[2018-12-07] MEDS ORDERED: ePHEDrine 50 MG/ML VIAL ONE (10:37)
[2018-12-07] MEDS ORDERED: Lidocaine 1% PF 5 ML VIAL ONE (10:37)
[2018-12-07] MEDS ORDERED: Meperidine HCl/PF 25 MG/ML VIAL SLOW IVP PRN (11:51)
[2018-12-07] MEDS ORDERED: HYDROcodone/Acetaminophen 7.5/325 mg Tablet PO PRN (12:24)
[2018-12-07] MEDS ORDERED: Acetaminophen 325 MG TAB PO PRN (12:24)
[2018-12-07] MEDS ORDERED: Acetaminophen/Codeine 30-300mg Tablet PO PRN (12:24)
[2018-12-07] MEDS ORDERED: Bisacodyl 10 MG SUPP PR PRN (12:24)
[2018-12-07] MEDS ORDERED: Mag-Al 1200 mg/1200 mg/30 ML UDCUP PO PRN (12:24)
[2018-12-07] MEDS ORDERED: Milk Of Magnesia 30 ML UDCUP PO PRN (12:24)
[2018-12-07] MEDS ORDERED: traMADol HCl 50 MG TAB PO PRN (12:24)
[2018-12-07] MEDS ORDERED: Fleet Enema 133 ML BOT PR PRN (12:24)
[2018-12-07] MEDS ORDERED: Spiriva 18 MCG CAP (Box of 5 Caps) INH PRN (12:26)
[2018-12-07] MEDS ORDERED: CEFAZOLIN 2 GM in Premix Bag 1 BAG IVPB SCH (12:30)
[2018-12-07] MEDS ORDERED: Non-Formulary Item 1 EACH (Nebulizer Accessories [Aeroneb Go] 1 EACH) MC SCH (12:30)
[2018-12-07] MEDS ORDERED: HYDROmorphone 2 MG/ML VIAL ONE (12:51)
[2018-12-07] MEDS ORDERED: Promethazine HCl 25 MG/ML VIAL ONE (13:10)
[2018-12-07] MEDS ORDERED: Fentanyl 100 MCG/2 ML VIAL ONE ×3 (13:56→14:57)
--- NOTE | 2018-12-07 14:11 | OP ---
DATE OF PROCEDURE: 12/07/2018 LOCATION: OR 11. WOUND CLASSIFICATION: Type 1 wound. CHIEF ULTRASOUND TECHNOLOGIST: Lakhwinder. PREPROCEDURE DIAGNOSIS: Right L4 radiculopathy with right L4-L5 far lateral disk extrusion. POSTPROCEDURE DIAGNOSIS: Right L4 radiculopathy with right L4-L5 far lateral disk extrusion. PROCEDURES PERFORMED: 1. Right L4-L5 trans-facet approach for far lateral diskectomy. 2. Use of operative microscope for microdissection. DESCRIPTION OF PROCEDURE: After informed consent was obtained from the patient , the patient was brought to the OR. Proper patient, pause, and identification were carried out. She was placed under excellent general endotracheal anesthesia and positioned prone on the OR table. All appropriate points were padded. We identified the L4-L5 segments and a linear sanaz was made over this region. This area was sterilely cleansed, prepared, and draped. Proper patient, pause, and identification were carried out. The wound was then opened with combination of sharp, monopolar, and blunt dissection. The L4-L5 dorsal spines and right L4-L5 liudmila-lamina were exposed. Localization film confirmed our area of interest. The right L4-L5 trans-facet approach was then performed for exposure of the exiting right L4 nerve root. The microscope was brought in for microdissection, we then working in the axilla of the right L4 nerve root, removed multiple disk fragments to achieve lateral and far-lateral decompression completely with the right L4 root. Copious irrigation occurred throughout as did maximizing hemostasis. The wound was then closed in anatomic layers following sprinkling of vancomycin powder. The patient then emerged from anesthesia. Job ID: [id number] [facility]
--- NOTE | 2018-12-07 14:13 | CT ---
CT ABDOMEN AND PELVIS WITHOUT CONTRAST: INDICATION: Inguinal pain, status post surgery. FINDINGS: There is a large mixed density collection containing internal air locules centered about the right ps oas muscle compatible with a large intramuscular hematoma. There is surrounding retroperitoneal fat stranding. Postoperative air density is seen within the vertebral canal related to right hemilaminec cm of the lower lumbar spine. Within the pelvis, inflammatory stranding does extend along the righ t iliac vasculature. Incidental note of mild reticulonodularity at the imaged left lung base, incomp letely assessed. Evaluation is otherwise limited on the basis of noncontrast technique. IMPRESSION: Large hematoma spanning the right psoas musculature, with associated muscular expansion, surrounding retroperitoneal fat stranding as well as extension of hematoma along the right iliac vasculature. He matoma spans a craniocaudal extent of approximately 15.5 cm at its largest component, and in transver se dimension is approximately 6.5 cm. Telephone call placed to patients physician, Andrey Welch, 1350 hours, 12/07/18. POS: [facility]
[2018-12-07] MEDS ORDERED: Ketorolac Tromethamine 30 MG/ML VIAL ONE (14:18)
[2018-12-07] MEDS ORDERED: diphenhydrAMINE 50 MG/ML VIAL IM PRN (14:28)
[2018-12-07] MEDS ORDERED: Zolpidem Tartrate 5 MG TAB PO PRN (14:28)
[2018-12-07] MEDS ORDERED: Naloxone HCl 0.4 mg/ml Vial IV PRN (14:28)
[2018-12-07] MEDS ORDERED: Ondansetron PF 4 MG/2 ML Vial IVP PRN (14:28)
[2018-12-07] MEDS ORDERED: Communication Order-Pharmacy FS SCH (14:30)
--- NOTE | 2018-12-07 14:33 | PRG ---
DATE OF SERVICE: 12/07/2018 Postoperatively, Ms. Henao's right L4 radiculopathy was resolved with excellent strength in her quadriceps, dorsiflexion, and toe extension. Unfortunately, she had significant right groin pain with radiation into the proximal anterior thigh following right far lateral diskectomy. My concern immediately was a right-sided psoas hematoma and in fact, CT scan of the abdomen and pelvis indicates intramuscular hematoma. The disk extrusion was just medial to the psoas and bleeding into the psoas muscle must have occurred during the diskectomy. We want to put her on SINGEING TORCH OPERATOR to assist with her pain and keep her comfortable essentially tonight. We will start with a CBC now and repeat in 4 hours along with close hemodynamic monitoring overnight. She has a blood pressure of 166/80 and has been hypertensive. She also has no tachycardia with a heart rate that is between 60 and 70 beats per minute. We will, obviously at this point, watch her closely with also right leg pulse assessments. I have updated her family and also discussed her case with Dr. Cunningham. Job ID: [id number] [facility]
[2018-12-07 14:54] LABS: #Lymphocytes 1.2 thou/uL (1.20-3.40); #Monocytes 0.2 thou/uL (0.11-0.59); #Neutrophils 6.7 thou/uL (1.40-6.50); %Basophils 0.2 % (0.0-1.0); %Eosinophils 0.6 % (0.0-10.0); %Lymphocytes 14.2 % (21.0-51.0); %Monocytes 2.3 % (0.0-10.0); %Neutrophils 82.7 % (42.0-75.0); Hemoglobin 12.6 g/dL (12.0-16.0); Mean Corpuscular HGB CONC 33.8 g/dL (32.0-36.0); Mean Corpuscular Volume 97.7 fL (78.0-98.0); Mean Platelet Volume 7.6 fL (7.4-10.4); Platelet Count 161 thou/uL (130-400); RBC Distribution Width 12.6 % (11.5-14.5); Red Blood Cell (RBC) Count 3.81 mill/uL (4.20-5.40); White Blood Cell (WBC) Count 8.1 thou/uL (4.8-10.8)
[2018-12-07] MEDS ORDERED: hydrALAZINE 20 MG/ML VIAL ONE (15:26)
[2018-12-07] MEDS ORDERED: hydrALAZINE 20 MG/ML VIAL SLOW IVP PRN (15:48)
[2018-12-07] MEDS ORDERED: tiZANidine HCl 4 MG TAB ONE (15:56)
[2018-12-07 16:38] VITALS: BMI 26.2
[2018-12-07] MEDS ORDERED: hydrALAZINE 20 MG/ML VIAL SLOW IVP SCH (17:00)
[2018-12-07] MEDS: PROVENTIL INHALER 6.7 G (200 INHALATIONS) INH SCH ×3 (17:14→21:59)
[2018-12-07] MEDS: Sodium Chloride 0.9% 1,000 ML IV SCH (17:44)
[2018-12-07] MEDS: cloNIDine 0.3 MG TAB PO SCH ×2 (17:58→20:37)
[2018-12-07] MEDS: CEFAZOLIN 2 GM in Premix Bag 1 BAG IVPB SCH (17:59)
[2018-12-07 18:33] LABS: #Monocytes 0.3 thou/uL (0.11-0.59); #Neutrophils 10.6 thou/uL (1.40-6.50); %Basophils 0.2 % (0.0-1.0); %Lymphocytes 8.3 % (21.0-51.0); %Monocytes 2.3 % (0.0-10.0); %Neutrophils 89.2 % (42.0-75.0); Hemoglobin 12.5 g/dL (12.0-16.0); Mean Corpuscular HGB CONC 33.4 g/dL (32.0-36.0); Mean Corpuscular Hemoglobin 32.2 pg (27.0-31.0); Mean Corpuscular Volume 96.5 fL (78.0-98.0); Mean Platelet Volume 7.2 fL (7.4-10.4); Platelet Count 172 thou/uL (130-400); RBC Distribution Width 12.5 % (11.5-14.5); Red Blood Cell (RBC) Count 3.89 mill/uL (4.20-5.40); White Blood Cell (WBC) Count 11.9 thou/uL (4.8-10.8)
[2018-12-07] MEDS: tiZANidine HCl 4 MG TAB PO PRN (19:47)
[2018-12-07] MEDS ORDERED: HYDROmorphone 0.5 MG/0.5 ML SYRINGE SLOW IVP SCH (20:30)
[2018-12-07] MEDS: Zolpidem Tartrate 5 MG TAB PO SCH (20:37)
[2018-12-07] MEDS: Mometasone/Formoterol 120 PUFF INHALER INH SCH (21:23)
[2018-12-07] MEDS: diphenhydrAMINE 50 MG/ML VIAL IVP PRN (21:46)
[2018-12-07] MEDS: HYDROmorphone 10 mg/100 ml CADD IVPB PRN (22:13)
--- NOTE | 2018-12-08 00:32 | CON ---
DATE OF CONSULTATION: HISTORY OF PRESENT ILLNESS: This is a 58-year-old who underwent right L4 transfacet approach for a lateral diskectomy. In the recovery room, she was noted to have pain over the right anterior lateral thigh, different from the shooting pains that she had experienced prior to surgery. There was concern about possible retroperitoneal hematoma and a noncontrast CT did confirm a bleed into the psoas muscle. When I examined her in the recovery room, she had been fairly heavily medicated but continued to have rather severe pain that she pointed to over the anterior lateral upper thigh. She denied any abdominal pain or groin pain. PHYSICAL EXAMINATION: VITAL SIGNS: Her blood pressure was recorded at 180, heart rate at 75. ABDOMEN: Examination of her abdomen revealed some mild tenderness to deep palpation in the right lower quadrant with no tenderness in the left lower quadrant. EXTREMITIES: She had easily palpable femoral and popliteal pulse. LABORATORY DATA: Her hemoglobin was 12.6 and that compared with a hemoglobin of 13.3 about 5 days ago. Her platelet count is normal. HOME MEDICATIONS: Included 1. Clonidine. 2. Ambien. 3. Spiriva. 4. Protonix. 5. Lisinopril. 6. DuoNeb. 7. Proventil inhaler. ALLERGIES: REGLAN. PLAN: At this time, the patient is clinically stable and we will follow up with her next hemoglobin at 1800 and reexamine her at that time. Job ID: [id number]
[2018-12-08] MEDS ORDERED: Mag-Al 1200 mg/1200 mg/30 ML UDCUP PO PRN (01:05)
[2018-12-08] MEDS ORDERED: HYDROmorphone 0.5 MG/0.5 ML SYRINGE SLOW IVP SCH (01:15)
[2018-12-08] MEDS: PROVENTIL INHALER 6.7 G (200 INHALATIONS) INH SCH ×7 (01:53→23:14)
[2018-12-08] MEDS: CEFAZOLIN 2 GM in Premix Bag 1 BAG IVPB SCH (03:15)
[2018-12-08] MEDS: HYDROmorphone 10 mg/100 ml CADD IVPB PRN ×3 (06:15→20:19)
[2018-12-08] MEDS: Sodium Chloride 0.9% 1,000 ML IV SCH ×2 (06:58→20:17)
[2018-12-08 08:17] LABS: #Lymphocytes 1.6 thou/uL (1.20-3.40); #Monocytes 0.6 thou/uL (0.11-0.59); #Neutrophils 4.8 thou/uL (1.40-6.50); %Basophils 0.3 % (0.0-1.0); %Eosinophils 0.6 % (0.0-10.0); %Lymphocytes 22.7 % (21.0-51.0); %Monocytes 8.1 % (0.0-10.0); %Neutrophils 68.3 % (42.0-75.0); Hemoglobin 10.5 g/dL (12.0-16.0); MDiff Complete? YES; Mean Corpuscular HGB CONC 33.8 g/dL (32.0-36.0); Mean Corpuscular Hemoglobin 32.9 pg (27.0-31.0); Mean Corpuscular Volume 97.4 fL (78.0-98.0); Mean Platelet Volume 7.5 fL (7.4-10.4); Platelet Count 116 thou/uL (130-400); Platelet Morphology Comment Appears Decreased; Polychromasia SLIGHT = 2-3 cells (100X) (0-2/hpf); RBC Distribution Width 12.6 % (11.5-14.5); Red Blood Cell (RBC) Count 3.19 mill/uL (4.20-5.40); White Blood Cell (WBC) Count 7.1 thou/uL (4.8-10.8)
[2018-12-08] MEDS: Mometasone/Formoterol 120 PUFF INHALER INH SCH ×2 (08:27→18:58)
[2018-12-08] MEDS: Lisinopril 20 MG TAB PO SCH (08:37)
[2018-12-08] MEDS: Cyanocobalamin (Vitamin B-12) 1,000 MCG TAB PO SCH (08:37)
[2018-12-08] MEDS: cloNIDine 0.3 MG TAB PO SCH ×3 (08:37→20:15)
--- NOTE | 2018-12-08 09:37 | PRG ---
DATE OF SERVICE: 12/08/2018 Ms. Henao is postoperative day 1 from right L4-L5 far lateral diskectomy. Postoperatively, she had increased right groin pain in the region of the iliopsoas. I was concerned about a psoas hematoma in fact CT scan postoperatively demonstrated this. We have managed to control her pain at least at this point and she states she feels much better this morning. Obviously, this is deep muscular pain into the groin, which should certainly heal with time similar to a contusion. Her disk herniation certainly was lateral and abutted the iliopsoas complex. Nevertheless, hemoglobin postoperatively has been stable. It is preop 13, to postop draws at 12, and then this morning at 10.5. She is hemodynamically been stable. Dr. Cunningham has kindly followed along as well to assure for maintenance of pulses and vascular integrity. The patient has had resolution in her right L4 radiculopathy, but obviously we are dealing with the right iliopsoas hematoma. I would like to transfer to the floor. Continue to maximize pain management. She certainly does not need to mobilize out of bed today if she does not feel up to it as it is very similar to a pulled hamstring or something of that muscular sort. Otherwise, neurologically, she is doing well and certainly moving her right hip and groin with more vigor. Job ID: [id number] [facility]
[2018-12-08] MEDS: Zolpidem Tartrate 5 MG TAB PO SCH (20:15)
[2018-12-08] MEDS: tiZANidine HCl 4 MG TAB PO PRN (22:29)
[2018-12-09] MEDS ORDERED: Ketorolac Tromethamine 30 MG/ML VIAL IVP SCH ×2 (00:30→06:00)
[2018-12-09] MEDS ORDERED: Acetaminophen 1,000 MG in Premix Bag 1 BAG IVPB SCH (00:30)
[2018-12-09] MEDS: diphenhydrAMINE 50 MG/ML VIAL IVP PRN (00:40)
[2018-12-09] MEDS: HYDROmorphone 10 mg/100 ml CADD IVPB PRN ×2 (03:12→09:41)
[2018-12-09 04:47] LABS: #Eosinphils 0.2 thou/uL (0.0-0.7); #Lymphocytes 1.2 thou/uL (1.20-3.40); #Monocytes 0.4 thou/uL (0.11-0.59); #Neutrophils 3.6 thou/uL (1.40-6.50); %Basophils 0.2 % (0.0-1.0); %Eosinophils 2.8 % (0.0-10.0); %Lymphocytes 21.7 % (21.0-51.0); %Monocytes 7.9 % (0.0-10.0); %Neutrophils 67.3 % (42.0-75.0); Hemoglobin 10.2 g/dL (12.0-16.0); Mean Corpuscular HGB CONC 33.2 g/dL (32.0-36.0); Mean Corpuscular Volume 99.2 fL (78.0-98.0); Platelet Count 100 thou/uL (130-400); RBC Distribution Width 12.7 % (11.5-14.5); White Blood Cell (WBC) Count 5.3 thou/uL (4.8-10.8)
[2018-12-09] MEDS: Acetaminophen 1,000 MG in Premix Bag 1 BAG IVPB SCH ×2 (05:23→12:17)
[2018-12-09] MEDS: PROVENTIL INHALER 6.7 G (200 INHALATIONS) INH SCH ×5 (07:17→23:06)
[2018-12-09] MEDS: Mometasone/Formoterol 120 PUFF INHALER INH SCH ×2 (07:18→19:25)
[2018-12-09] MEDS: Cyanocobalamin (Vitamin B-12) 1,000 MCG TAB PO SCH (08:43)
[2018-12-09] MEDS: cloNIDine 0.3 MG TAB PO SCH ×3 (08:43→19:24)
[2018-12-09] MEDS: Lisinopril 20 MG TAB PO SCH (08:44)
[2018-12-09] MEDS ORDERED: traMADol HCl 50 MG TAB PO PRN (09:37)
[2018-12-09] MEDS: Sodium Chloride 0.9% 1,000 ML IV SCH ×2 (09:48→23:48)
--- NOTE | 2018-12-09 09:52 | PRG ---
DATE OF SERVICE: 12/09/2018 Ms. Henao is postoperative day 2 from right far lateral diskectomy at L4. Postoperatively, she was found to have a psoas hematoma on the right side, which has hampered her progress over the last 2 days. However, hemodynamically, she is stable. Her pulses have been intact in the right lower extremity. Her hemoglobin is stable at 10.2, preoperatively it was 13, then 12, and yesterday was noted to be at 10.5. She has [id number]-ja-[id number] weakness in her right iliopsoas, which is muscular limited, not neurologic. She has had resolution in her right L4 radiculopathy. We are essentially treating this psoas hematoma conservatively. I have educated her in regard to active range of motion exercises to target the iliopsoas, quadriceps, and dorsiflexors of both lower extremities today. We will try and wean her off the ASSISTANT NEWS DIRECTOR today and transition to oral analgesics. The plan will be to home with home health as her son is at home, he is 16 years old. Ms. Henao says that her son could certainly help at home. At this point, she has not yet been sitting on the edge of the bed or mobilizing, obviously limited by pain in her iliopsoas, but I am very optimistic about this recovery over the next couple of days. We will target early next week for dismissal and certainly sooner should she make significant strides in her recovery. Overall, I am pleased with how she is doing. Job ID: [id number]
[2018-12-09] MEDS: HYDROcodone/Acetaminophen 10/325 mg Tablet PO PRN ×3 (13:41→22:03)
[2018-12-09] MEDS: Morphine 2 MG/ML SYRINGE SLOW IVP PRN ×2 (17:00→20:42)
[2018-12-09] MEDS: Zolpidem Tartrate 5 MG TAB PO SCH (20:46)
[2018-12-09] MEDS: diphenhydrAMINE 25 MG CAP PO PRN (22:03)
[2018-12-09] MEDS: tiZANidine HCl 4 MG TAB PO PRN (23:49)
[2018-12-10] MEDS ORDERED: Acetaminophen 325 MG TAB PO PRN (00:01)
[2018-12-10] MEDS: Morphine 2 MG/ML SYRINGE SLOW IVP PRN ×6 (00:40→20:22)
[2018-12-10] MEDS: PROVENTIL INHALER 6.7 G (200 INHALATIONS) INH SCH ×6 (01:34→23:00)
[2018-12-10] MEDS: HYDROcodone/Acetaminophen 10/325 mg Tablet PO PRN ×6 (02:01→22:46)
[2018-12-10] MEDS: diphenhydrAMINE 25 MG CAP PO PRN (02:02)
[2018-12-10] MEDS: Mometasone/Formoterol 120 PUFF INHALER INH SCH ×2 (08:07→18:50)
--- NOTE | 2018-12-10 08:24 | ULT ---
EXAM: Bilateral lower extremity venous Doppler HISTORY: Impaired mobility due to recent back surgery. FINDINGS: Grayscale, color-flow, Doppler evaluation, spectral analysis of the bilateral lower extremities venou s structures is performed with 2-D imaging. The bilateral common femoral, superficial femoral, popliteal, posterior tibial, proximal greater saphenous and profunda femoral veins are imaged. There is normal luminal compressibility, flow, and augmentation in the visualized deep venous structu res of the bilateral lower extremities. IMPRESSION: No evidence of a deep vein thrombosis in the visualized deep venous structures bilaterally lower extr emities.
[2018-12-10] MEDS: Cyanocobalamin (Vitamin B-12) 1,000 MCG TAB PO SCH (08:40)
[2018-12-10] MEDS: tiZANidine HCl 4 MG TAB PO PRN (08:41)
[2018-12-10] MEDS: Lisinopril 20 MG TAB PO SCH (08:41)
[2018-12-10] MEDS: cloNIDine 0.3 MG TAB PO SCH ×3 (08:41→20:23)
[2018-12-10] MEDS: Sodium Chloride 0.9% 1,000 ML IV SCH (11:56)
--- NOTE | 2018-12-10 14:52 | PRG ---
DATE OF SERVICE: 12/10/2018 This is a postoperative recheck. Ms. Henao is now postoperative day #3, having undergone L4-L5 far lateral diskectomy with some iliopsoas hematoma. The patient is doing very well today. Pain control is paramount for her, but she has been off her APPLICATIONS SYSTEM ANALYST over the past 24 hours and on oral analgesics and improving. Our goal is mobilization at this point, and we will discontinue the Shafer today. She remains with good strength in the bilateral lower extremities, although she again is slow to move the right iliopsoas. She does have some good strength. Again, I have discussed with her in great detail mobilization, and she is motivated to do this. Her hope is that she will be home on Thursday with home health, and I have written her prescriptions. Otherwise, her bilateral lower extremity ultrasound is negative for DVT. We will continue to monitor, but again, hopefully plan for dismissal in the next few days. The patient is doing well. Job ID: [id number]
[2018-12-10] MEDS: Zolpidem Tartrate 5 MG TAB PO SCH (20:22)
[2018-12-11] MEDS: Morphine 2 MG/ML SYRINGE SLOW IVP PRN ×3 (00:40→09:17)
[2018-12-11] MEDS: tiZANidine HCl 4 MG TAB PO PRN ×2 (01:38→11:03)
[2018-12-11] MEDS: diphenhydrAMINE 25 MG CAP PO PRN (01:40)
[2018-12-11] MEDS: HYDROcodone/Acetaminophen 10/325 mg Tablet PO PRN ×3 (02:27→12:10)
[2018-12-11] MEDS: Sodium Chloride 0.9% 1,000 ML IV SCH (02:37)
[2018-12-11] MEDS: PROVENTIL INHALER 6.7 G (200 INHALATIONS) INH SCH ×4 (03:15→14:15)
[2018-12-11] MEDS: Mometasone/Formoterol 120 PUFF INHALER INH SCH (07:04)
[2018-12-11] MEDS: Lisinopril 20 MG TAB PO SCH (07:57)
[2018-12-11] MEDS: cloNIDine 0.3 MG TAB PO SCH ×2 (07:57→14:29)
[2018-12-11] MEDS: Cyanocobalamin (Vitamin B-12) 1,000 MCG TAB PO SCH (07:58)
[2018-12-11 09:22] LABS: #Basophils 0.1 thou/uL (0.0-0.2); #Eosinphils 0.3 thou/uL (0.0-0.7); #Lymphocytes 1.4 thou/uL (1.20-3.40); #Monocytes 0.3 thou/uL (0.11-0.59); #Neutrophils 4.2 thou/uL (1.40-6.50); %Basophils 0.8 % (0.0-1.0); %Eosinophils 4.1 % (0.0-10.0); %Lymphocytes 22.7 % (21.0-51.0); %Monocytes 5.3 % (0.0-10.0); Hemoglobin 10.9 g/dL (12.0-16.0); Mean Corpuscular HGB CONC 32.7 g/dL (32.0-36.0); Mean Corpuscular Hemoglobin 32.5 pg (27.0-31.0); Mean Corpuscular Volume 99.5 fL (78.0-98.0); Mean Platelet Volume 7.9 fL (7.4-10.4); Platelet Count 145 thou/uL (130-400); Red Blood Cell (RBC) Count 3.35 mill/uL (4.20-5.40); White Blood Cell (WBC) Count 6.2 thou/uL (4.8-10.8)
[2018-12-11 09:42] LABS: Anion Gap 10 mmol/L (10-20); BUN (Urea Nitrogen) 7 mg/dL (9.8-20.1); Calc. Creatinine Clearance 113 mL/min (70-130); Calcium 8.9 mg/dL (7.8-10.44); Carbon Dioxide 23 mmol/L (22-29); Chloride 107 mmol/L (98-107); Estimated GFR-MDRD 83; Glucose 88 mg/dL (70-105); Potassium 4.1 mmol/L (3.5-5.1); Sodium 136 mmol/L (136-145)
--- NOTE | 2018-12-11 10:20 | PRG ---
DATE OF SERVICE: 12/11/2018 SUBJECTIVE: Ms. Henao is postop day #4 following lumbar decompression and with subsequent psoas hematoma. She is actually doing quite well today and requests to go home and preferably going with this, but would like to see her ambulate in the halls before doing so. She has not yet done this. If she tolerates this well, she will be discharged. If she is discharged today, please let the service. Job ID: [id number]
[2018-12-11 11:17] VITALS: TEMP 97.7
[2018-12-11 14:29] VITALS: BP 157/80
== END 2018-12-11 14:55 | disposition home or self-care (01) | DRG 519 ==
LOC: SDC 07:58 → CCU 14:05 → SURG A 12-08 09:15
PROVIDERS: ADMIT Surgery; ATTEND Surgery
PROC: 0SB20ZZ Excision of Lumbar Vertebral Disc, Open Approach (ICD-10-PCS; principal; 2018-12-07)
DX: M51.16 Intervertebral disc disorders with radiculopathy, lumbar region (principal); L76.32 Postprocedural hematoma of skin and subcutaneous tissue following other procedure; M48.061 Spinal stenosis, lumbar region without neurogenic claudication; E03.9 Hypothyroidism, unspecified; I10 Essential (primary) hypertension; Y83.8 Other surgical procedures as the cause of abnormal reaction of the patient, or of later complication, without mention of misadventure at the time of the procedure; J44.9 Chronic obstructive pulmonary disease, unspecified; Z86.73 Personal history of transient ischemic attack (TIA), and cerebral infarction without residual deficits; Z88.8 Allergy status to other drugs, medicaments and biological substances
CPT/HCPCS: 36415; 74176; 76000; 80048; 85025; 93005; 93010; 93970; J0131; J0360; J0690; J1100; J1170; J1200; J1885; J2001; J2250; J2270; J2550; J2704; J3010; J3370; J3490; Q0163

== ENCOUNTER 2019-02-18 14:17 | Inpatient (IN) | payer MEDICARE ==
[2019-02-18 14:47] LABS: #Eosinphils 0.1 thou/uL (0.0-0.7); #Monocytes 0.6 thou/uL (0.11-0.59); %Basophils 0.4 % (0.0-1.0); %Eosinophils 1.5 % (0.0-10.0); %Lymphocytes 22.6 % (21.0-51.0); %Monocytes 6.8 % (0.0-10.0); %Neutrophils 68.7 % (42.0-75.0); Hemoglobin 6.1 g/dL (12.0-16.0); Mean Corpuscular HGB CONC 31.7 g/dL (32.0-36.0); Mean Corpuscular Hemoglobin 28.5 pg (27.0-31.0); Mean Corpuscular Volume 90.2 fL (78.0-98.0); Mean Platelet Volume 7.3 fL (7.4-10.4); Platelet Count 226 thou/uL (130-400); RBC Distribution Width 18.3 % (11.5-14.5); Red Blood Cell (RBC) Count 2.14 mill/uL (4.20-5.40); White Blood Cell (WBC) Count 8.7 thou/uL (4.8-10.8)
[2019-02-18] MEDS ORDERED: Pantoprazole 40 MG VIAL ONE (15:02)
[2019-02-18] MEDS ORDERED: Fentanyl 100 MCG/2 ML VIAL ONE (16:35)
[2019-02-18 17:36] VITALS: BMI 23.6
[2019-02-18] MEDS ORDERED: Acetaminophen 325 MG TAB PO PRN (17:36)
[2019-02-18] MEDS ORDERED: Ondansetron PF 4 MG/2 ML Vial IVP PRN (17:36)
[2019-02-18] MEDS ORDERED: Sodium Chloride 0.9% 1,000 ML IV SCH (17:36)
[2019-02-18] MEDS ORDERED: Ondansetron ODT 4 MG TAB SL PRN (17:36)
--- NOTE | 2019-02-18 18:41 | HP ---
PRIMARY CARE PROVIDER: Momo Cody. CHIEF COMPLAINT: Vomiting blood. HISTORY OF PRESENT ILLNESS: Ms. Henao is a 58-year-old lady, who was seen at [facility] on February 18, 2019 after transfer from the emergency room at [place]. She reports that 5 days ago she had an episode of hematemesis. She was taking naproxen at that time for back pain, although she reports that she was taking maybe one or two doses a day. She stopped the naproxen 2 or 3 days ago because it was not helping her back pain. Following the episode of hematemesis 5 days ago, she saw her primary care provider 2 days ago. She had blood work done. The following day, she was advised to go to the emergency room. She presented to the emergency room today. She was found to be anemic. She was subsequently transferred to the emergency room here. She reports that her last bowel movement was 4 days ago, but also reports that it is usual for her. She denies any fevers or chills. She reports burning sensation in the retrosternal region and in the epigastrium. She describes it as 5/10 at its worse, nonradiating, no known aggravating or relieving factors. REVIEW OF SYSTEMS: All systems were reviewed and found to be negative except for the pertinent positives mentioned above. PAST MEDICAL HISTORY: Hypertension, hypothyroidism. The patient had erosive gastritis on upper endoscopy in June 2017. She also has a history of TIA, myocardial infarction, hepatitis C status post treatment, and chronic low back pain. PAST SURGICAL HISTORY: Cholecystectomy, laparoscopic hysterectomy, bleeding ulcer surgery, and back surgery. SOCIAL HISTORY: The patient smokes one pack of cigarettes a day. She is a former drug user. She denies any alcohol use. FAMILY HISTORY: She denies any family history of premature coronary artery disease. ALLERGIES: REGLAN. CURRENT MEDICATIONS: These need to be clarified, but appeared to include: 1. Levothyroxine 175 mcg daily. 2. Nexium 20 mg daily. 3. Lisinopril 20 mg daily. PHYSICAL EXAMINATION: GENERAL: On examination, Ms. Henao is awake and alert, not in acute distress. VITAL SIGNS: Blood pressure is 128/82, pulse 80, respiratory rate 16, and oxygen saturation 98% on room air. She is afebrile. EYES: No scleral icterus, she has conjunctival pallor. ENT: Moist mucosal membranes. No oropharyngeal erythema or exudates. NECK: Supple, nontender, trachea is midline. RESPIRATORY: Accessory muscles of breathing are not active. Chest wall movements are symmetric bilaterally. LUNGS: Clear to auscultation, without wheeze, rhonchi, or crepitations. CARDIOVASCULAR: S1 and S2 are heard, regular. Peripheral pulses palpable. ABDOMEN: Soft, mild epigastric tenderness. No guarding or rigidity. Bowel sounds are heard. NEUROLOGIC: Cranial nerves 2 through 12 intact, deep tendon reflexes 2+. MUSCULOSKELETAL: Power is 5/5 in all 4 extremities. SKIN: No rashes or subcutaneous nodules. LYMPHATIC: No cervical lymphadenopathy. PSYCHIATRIC: Normal mood, normal affect, the patient is oriented to person, place, and time. LABORATORY DATA: Ms. Henao's labs and investigations were reviewed. She has a normal white count; normocytic anemia with hemoglobin 6.1; hemoglobin was 10.9 on December 11, 2018, 6.7 on December 16, 2018, and 5.7 on . Platelet count is normal. She has normal sodium, normal potassium, normal blood urea nitrogen, elevated creatinine of 1.18, it was 1.12 two days ago and 0.72 on December 11, 2018. She has normal total bilirubin, normal AST, normal ALT, and normal alkaline phosphatase. ASSESSMENT AND PLAN: Ms. Henao is a pleasant 58-year-old lady, who was seen at [facility] on February 18, 2019. Her problem list includes: 1. Acute blood loss anemia: Ms. Henao is presenting with acute blood loss anemia, which is symptomatic. This is in the context of episodes of hematemesis 5 days ago. 2. Hematemesis: The patient will be admitted to the hospital. She will be started on a PPI drip. She will receive packed RBC transfusion. Hemoglobin and hematocrit will be rechecked. Gastroenterology Service is being consulted for opinion and help with management. The patient has been advised against using nonsteroidal anti-inflammatory agents. 3. Hypertension: We will resume the patient's home medications once clarified, monitor vital signs and titrate antihypertensives as needed. 4. Hypothyroidism: We will continue thyroid replacement therapy once medications are clarified. 5. Transient ischemic attack and myocardial infarction: Both these issues appear to be stable. Many thanks for allowing me to participate in your patient's care. Please feel free to contact me with any questions or concerns. LEVEL OF RISK: Moderate. LEVEL OF COMPLEXITY: Moderate. Job ID: [id number]
[2019-02-18] MEDS: Sodium Chloride 0.9% 1,000 ML IV SCH (18:54)
[2019-02-18] MEDS: Nicotine 21 MG PATCH TD SCH (19:06)
[2019-02-18] MEDS: Morphine 2 MG/ML SYRINGE SLOW IVP PRN (20:21)
[2019-02-18] MEDS: Pantoprazole 80 MG in Sodium Chloride 0.9% 100 ML IVP SCH (22:05)
[2019-02-18 23:07] LABS: Hemoglobin 7.8 g/dL (12.0-16.0)
[2019-02-19] MEDS: Morphine 2 MG/ML SYRINGE SLOW IVP PRN ×2 (00:32→04:46)
--- NOTE | 2019-02-19 02:53 | CON ---
DATE OF CONSULTATION: 02/18/2019 CHIEF COMPLAINT: Vomited blood. HISTORY OF PRESENT ILLNESS: Ms. Henao is a 58-year-old woman with a history of cirrhosis of the liver who on Thursday evening, 4 nights ago, vomited multiple times and then vomited red blood. She vomited the red blood after retching numerous times. She has had some nausea and vomiting on and off for the last couple weeks, mostly with dry heaves. She had a Coke yesterday, but nothing else to eat or drink yesterday or today. She has had no blood in the stool and has been on the constipated side lately. She had been taking naproxen for back pain and leg pain, but she quit taking that couple of days ago. She has had no chest pain or shortness of breath. She has had some right upper quadrant aching pain that comes and goes around once per month and lasts for several hours at a time. The pain was worse when she was having her vomiting. PAST MEDICAL HISTORY: Cirrhosis of the liver. Hepatitis C, status post cure with medication therapy, hypertension, hypothyroidism, chronic back pain, myocardial infarction, TIA. PAST SURGICAL HISTORY: Cholecystectomy, hysterectomy, back surgery. I performed EGD for her in July of 2017 for vomiting with a similar presentation last time, which was likely secondary to a Triny-Rutherford tear. She was also taking NSAIDs. EGD was negative for bleeding source and negative for varices. She has not followed up with Gastroenterology or hepatology since then. FAMILY HISTORY: Negative for GI malignancy. SOCIAL HISTORY: She smokes a pack a day. No alcohol for several years. She has history of past IV drug use. ALLERGIES: METOCLOPRAMIDE. MEDICATIONS: Prior to admission, 1. Nexium 20 mg daily. 2. Lisinopril. 3. Levothyroxine. REVIEW OF SYSTEMS: Negative x10 systems reviewed except as stated in the history of present illness. PHYSICAL EXAMINATION: VITAL SIGNS: Temperature 98.3, pulse 89, blood pressure 114/61. GENERAL: She is in no acute distress. Alert and oriented x3. HEENT: Eyes have no scleral icterus. Oropharynx is clear without lesions. NECK: No cervical or supraclavicular lymphadenopathy. LUNGS: Clear to auscultation bilaterally. HEART: Regular rate and rhythm without murmur. ABDOMEN: Soft, nontender, and nondistended. Bowel sounds are present. EXTREMITIES: No lower extremity edema. NEUROLOGIC: Reveals no asterixis. LABORATORY DATA: White blood cell count 8.7, hemoglobin was 5.7 in the ER today. Two days ago, her hemoglobin was 6.7. However, back in December, her hemoglobin was 10.9. Her platelets can run in the low 100s at baseline, but are currently 226. INR 1.1. Creatinine 1.18, bilirubin 0.2, AST 14, ALT 12, alkaline phosphatase 72, albumin 3.2. IMPRESSION: 1. Hematemesis, likely secondary to Triny-Rutherford tear. She retched multiple times and vomited regular food and then vomited the blood. She had a similar episode a year and a half ago with negative endoscopy at that time. Given that she has a history of cirrhosis and nonsteroidal antiinflammatory drugs use and red hematemesis, now with severe anemia, she will need repeat endoscopy. She is due for varices screening anyway. 2. Anemia of acute blood loss on top of chronic anemia. Last esophagogastroduodenoscopy was in July of 2017. Her last colonoscopy was in 2010 and was negative. 3. 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 The hepatitis C was cured with medications. Liver biopsy confirmed cirrhosis at that time and imaging showed a nodular liver and splenomegaly. She has not been following with GI or hepatology, however. RECOMMENDATIONS: 1. EGD tomorrow. 2. Proton pump inhibitor. 3. I think we can hold off octreotide since she had no varices on her previous EGD and this presentations more consistent with a Triny-Rutherford tear. 4. Blood transfusion. 5. Hepatoma screening with alpha fetoprotein and ultrasound every 6 months. I will order this for tomorrow morning. 6. She is advised to follow up in GI Clinic on a more regular basis for management of her chronic liver disease. Job ID: [id number]
[2019-02-19] MEDS: Sodium Chloride 0.9% 1,000 ML IV SCH ×2 (05:22→23:40)
[2019-02-19 05:46] LABS: #Eosinphils 0.1 thou/uL (0.0-0.7); #Lymphocytes 1.6 thou/uL (1.20-3.40); #Monocytes 0.5 thou/uL (0.11-0.59); #Neutrophils 3.7 thou/uL (1.40-6.50); %Eosinophils 1.9 % (0.0-10.0); %Monocytes 8.1 % (0.0-10.0); %Neutrophils 62.9 % (42.0-75.0); Hemoglobin 8.5 g/dL (12.0-16.0); Mean Corpuscular HGB CONC 32.7 g/dL (32.0-36.0); Mean Corpuscular Hemoglobin 29.8 pg (27.0-31.0); Mean Corpuscular Volume 91.1 fL (78.0-98.0); Mean Platelet Volume 7.6 fL (7.4-10.4); Platelet Count 191 thou/uL (130-400); RBC Distribution Width 16.5 % (11.5-14.5); Red Blood Cell (RBC) Count 2.85 mill/uL (4.20-5.40); White Blood Cell (WBC) Count 5.8 thou/uL (4.8-10.8)
[2019-02-19 06:07] LABS: Anion Gap 9 mmol/L (10-20); BUN (Urea Nitrogen) 7 mg/dL (9.8-20.1); Calc. Creatinine Clearance 94 mL/min (70-130); Calcium 7.9 mg/dL (7.8-10.44); Carbon Dioxide 24 mmol/L (22-29); Chloride 108 mmol/L (98-107); Estimated GFR-MDRD 76; Glucose 62 mg/dL (70-105); Potassium 4.1 mmol/L (3.5-5.1); Sodium 137 mmol/L (136-145)
[2019-02-19] MEDS ORDERED: Morphine 2 MG/ML SYRINGE SLOW IVP SCH (07:30)
[2019-02-19] MEDS: Pantoprazole 80 MG in Sodium Chloride 0.9% 100 ML IVP SCH (07:43)
--- NOTE | 2019-02-19 09:36 | ULT ---
RIGHT UPPER QUADRANT ULTRASOUND: Date: 02/19/19 HISTORY: Cirrhosis. FINDINGS: Very inhomogeneous liver with some minimal marginal nodularity which certainly could be consistent wi th clinical concern for cirrhosis. Status post cholecystectomy. Common bile duct 0.7 cm. 0.5 x 0.9 cm right renal cyst. No evidence for ascites. Visualized pancreas is unremarkable. IMPRESSION: Very inhomogeneous liver with some marginal nodularity which could be consistent with history of cirr hosis. Status post cholecystectomy. Small right renal cyst. POS: [facility]
--- NOTE | 2019-02-19 11:11 | OP ---
DATE OF PROCEDURE: 02/19/2019 PROCEDURE PERFORMED: Esophagogastroduodenoscopy with biopsy. PREOPERATIVE DIAGNOSIS: Hematemesis and anemia of acute blood loss and cirrhosis of the liver. DESCRIPTION OF PROCEDURE: Informed consent was obtained from the patient. She was sedated with total intravenous anesthesia. The bite block was placed and the endoscope was advanced easily to the second portion of the duodenum and retroflexion was performed in the stomach. The esophagus had grade C erosive esophagitis scattered through the distal third of the esophagus. The stomach had diffuse erythematous gastritis and a cratered 1.7 cm ulcer in the antrum. There was no stigmata of recent bleeding associated with the ulcer. The pylorus and first and second portions of the duodenum were normal. Biopsies were taken from the ulcer edge and from the body of the stomach to rule out Helicobacter pylori. IMPRESSION: 1. A 1.7 cm ulcer in the gastric antrum. Biopsy to rule out Helicobacter pylori. 2. Erythematous diffuse gastritis. 3. Grade C erosive esophagitis. 4. No esophageal or gastric varices were seen. 5. There was no stigmata of recent bleeding. RECOMMENDATIONS: 1. Await histopathology. 2. Proton pump inhibitor twice daily orally. 3. Repeat EGD in 1 year for varices screening. 4. Advance diet. 5. Await alpha-fetoprotein. The ultrasound was negative for liver tumor. 6. She can be discharged home tomorrow, if her hemoglobin is stable. 7. I will sign off. Follow up in GI clinic in 4 weeks. Job ID: [id number]
[2019-02-19] MEDS ORDERED: traMADol HCl 50 MG TAB PO PRN (11:38)
[2019-02-19] MEDS ORDERED: PROPOFOL 200 MG/20 ML VIAL ONE (14:19)
--- NOTE | 2019-02-19 16:11 | PDOC.HOSPP ---
- Subjective Encounter Date: 02/19/19 Encounter Time: 16:09 Subjective: Pt seen for followup re: acute blood loss anemia. Feels better. - Objective Vital Signs & Weight: Vital Signs (12 hours) Temp Pulse Resp BP BP Pulse Ox 02/19/19 10:56 98 F 85 18 142/75 H 94 L 02/19/19 07:52 96 02/19/19 07:39 98.4 F 80 18 130/73 96 Weight Admit Weight 165 lb Weight 165 lb I&O: 02/18/19 02/19/19 02/20/19 06:59 06:59 06:59 Intake Total 1845 Balance 1845 Result Diagrams: 02/19/19 04:41 02/19/19 04:41 Additional Labs: Labs and MARs reviewed by mo Hospitalist ROS - Review of Systems Cardiovascular: denies: chest pain, palpitations, orthopnea, paroxysmal noc. dyspnea, edema, light headedness Gastrointestinal: denies: nausea, vomiting, abdominal pain, diarrhea, constipation, melena, hematochezia Musculoskeletal: reports: back pain - Medication Medications: Active Medications Generic Name Dose Route Start Last Admin Trade Name Freq PRN Reason Stop Dose Admin Sodium Chloride 1,000 mls @ 75 mls/hr 02/18/19 18:00 02/19/19 05:22 Normal Saline 0.9% IV Not Given .[id number] CR Nicotine 21 mg 02/18/19 18:00 02/18/19 19:06 Nicoderm Patch TD 21 mg Q24HR CR Administration Tramadol HCl 50 mg 02/19/19 11:38 02/19/19 12:28 Ultram PO 50 mg Q6H PRN Administration Pain - Exam General Appearance: NAD Eye: anicteric sclera ENT: moist mucosa Neck: supple Heart: RRR Respiratory: CTAB Gastrointestinal: soft, non-tender Extremities: no edema Neurological: no weakness Psychiatric: normal affect Hosp A/P (1) Anemia due to acute blood loss Code(s): D62 - ACUTE POSTHEMORRHAGIC ANEMIA Status: Acute (2) Gastritis Code(s): K29.70 - GASTRITIS, UNSPECIFIED, WITHOUT BLEEDING Status: Acute (3) [place] grade C esophagitis Code(s): K20.8 - OTHER ESOPHAGITIS Status: Acute (4) COPD (chronic obstructive pulmonary disease) Status: Chronic (5) GERD (gastroesophageal reflux disease) Code(s): K21.9 - GASTRO-ESOPHAGEAL REFLUX DISEASE WITHOUT ESOPHAGITIS Status: Chronic (6) Tobacco abuse Code(s): Z72.0 - TOBACCO USE Status: Chronic - Plan Continue BID PPI. Start diet, advance as tolerated. Likely home tomorrow. Continue nicotine patch.
[2019-02-19] MEDS: Nicotine 21 MG PATCH TD SCH (18:05)
[2019-02-19] MEDS: Acetaminophen 325 MG TAB PO PRN (19:51)
[2019-02-19] MEDS ORDERED: Zolpidem Tartrate 5 MG TAB PO SCH (21:00)
[2019-02-20] MEDS ORDERED: Levothyroxine Sodium 88 MCG TAB PO SCH (06:00)
[2019-02-20 06:49] LABS: #Eosinphils 0.1 thou/uL (0.0-0.7); #Lymphocytes 1.2 thou/uL (1.20-3.40); #Monocytes 0.5 thou/uL (0.11-0.59); #Neutrophils 4.3 thou/uL (1.40-6.50); %Basophils 0.4 % (0.0-1.0); %Eosinophils 1.7 % (0.0-10.0); %Lymphocytes 19.2 % (21.0-51.0); %Monocytes 7.8 % (0.0-10.0); %Neutrophils 70.9 % (42.0-75.0); Hemoglobin 8.8 g/dL (12.0-16.0); Mean Corpuscular HGB CONC 32.7 g/dL (32.0-36.0); Mean Corpuscular Hemoglobin 29.9 pg (27.0-31.0); Mean Corpuscular Volume 91.3 fL (78.0-98.0); Mean Platelet Volume 7.7 fL (7.4-10.4); Platelet Count 178 thou/uL (130-400); RBC Distribution Width 16.8 % (11.5-14.5); Red Blood Cell (RBC) Count 2.95 mill/uL (4.20-5.40); White Blood Cell (WBC) Count 6.1 thou/uL (4.8-10.8)
[2019-02-20 07:04] LABS: Anion Gap 11 mmol/L (10-20); BUN (Urea Nitrogen) 9 mg/dL (9.8-20.1); Calc. Creatinine Clearance 102 mL/min (70-130); Carbon Dioxide 22 mmol/L (22-29); Chloride 107 mmol/L (98-107); Estimated GFR-MDRD 83; Glucose 72 mg/dL (70-105); Potassium 4.5 mmol/L (3.5-5.1); Sodium 135 mmol/L (136-145)
[2019-02-20] MEDS: Acetaminophen 325 MG TAB PO PRN (07:57)
[2019-02-20] MEDS ORDERED: Lisinopril 20 MG TAB PO SCH (09:00)
[2019-02-20] MEDS ORDERED: Cyanocobalamin (Vitamin B-12) 1,000 MCG TAB PO SCH (09:00)
--- NOTE | 2019-02-20 11:02 | PRG ---
DATE OF SERVICE: 02/20/2019 SUBJECTIVE: Ms. Henao is tolerating her diet well. She has no abdominal pain. She has had no overt bleeding. OBJECTIVE: VITAL SIGNS: Temperature is 98.4, pulse 83, and blood pressure 151/82. GENERAL: She is in no acute distress. Alert and oriented x3. LUNGS: Clear to auscultation bilaterally. HEART: Regular rate and rhythm without murmur. ABDOMEN: Soft, nontender, and nondistended. Bowel sounds are present. EXTREMITIES: No lower extremity edema. LABORATORY DATA: Hemoglobin is 8.8 today. IMPRESSION: 1. Gastric antrum ulcer and severe erosive esophagitis. She has had no further overt bleeding and her hemoglobin is stable. 2. Anemia of acute blood loss. 3. Cirrhosis of the liver. Hepatoma screening is negative with ultrasound. Alpha fetoprotein is pending. RECOMMENDATIONS: 1. Proton pump inhibitor orally twice daily. 2. Low-salt diet. 3. Follow up in GI clinic for chronic management of her cirrhosis. 4. Anticipate discharge home today. I will sign off for now. Please call if GI can be of assistance. Job ID: [id number]
[2019-02-20 12:01] VITALS: BP 145/77; TEMP 98.6
--- NOTE | 2019-02-20 18:12 | DIS ---
DATE OF ADMISSION: 02/18/2019 DATE OF DISCHARGE: 02/20/2019 PRIMARY CARE PROVIDER: Momo Cody MD. DISCHARGE DIAGNOSES: 1. Acute blood loss anemia. 2. Gastritis. 3. [place] grade C esophagitis. 4. Gastric ulcer. 5. Hyponatremia. CONDITION OF THE PATIENT ON THE DAY OF DISCHARGE: Stable. I assessed Ms. Henao on the day of discharge. She denies any chest pain or shortness of breath. Vital signs are stable. S1 and S2 are heard, regular. Lungs are clear to auscultation bilaterally. DISCHARGE MEDICATIONS: 1. Clonidine 0.3 mg three times a day. 2. Levothyroxine 88 mcg daily. 3. Ambien 5 mg at bedtime. 4. Nicotine 21 mg patch daily. 5. Vitamin B12, 1000 mcg daily. 6. Lisinopril 20 mg daily. 7. Protonix 40 mg two times a day. CONSULTATIONS DURING THIS HOSPITALIZATION: Gastroenterology, Dr. Carlos. FOLLOWUP APPOINTMENTS: The patient is advised to follow up with primary care provider in 3 days' time and with Gastroenterology Service in 3 to 4 weeks' time. HOSPITAL COURSE: Ms. Henao is a pleasant 58-year-old lady, who was admitted to [facility] on February 18, 2019, for hematemesis in the context of nonsteroidal anti-inflammatory agent use. She was seen by Gastroenterology Service. She underwent EGD on February 19, 2019, which showed a 1.7 cm ulcer in the gastric antrum. It was biopsied to rule out H pylori. She also had erythematous diffuse gastritis and grade C erosive esophagitis. No esophageal or gastric varices were seen. She has been started on b.i.d. PPI. She has alpha-fetoprotein pending at the time of this dictation. She has been advised to follow up with GI Clinic in 4 weeks. She has also been advised to stop nonsteroidal anti-inflammatory agent use. Her hemoglobin was stable. She improved symptomatically. She is being discharged to home in a stable condition. On the day of discharge, she has white count of 6100, hemoglobin 8.8, platelet count 178,000, sodium 135, potassium 4.5, and creatinine 0.72. The patient has been advised to start nicotine patch and stop smoking. DISCHARGE DESTINATION: Home. TIME SPENT: Total amount of time spent coordinating this discharge, 32 minutes. Job ID: [id number]
== END 2019-02-20 12:45 | disposition home or self-care (01) | DRG 378 ==
LOC: ERS 14:17 → T4-A 16:17
PROVIDERS: ADMIT Internal Medicine; ATTEND Internal Medicine
PROC: 0DB68ZX Excision of Stomach, Via Natural or Artificial Opening Endoscopic, Diagnostic (ICD-10-PCS; principal; 2019-02-19)
DX: K25.4 Chronic or unspecified gastric ulcer with hemorrhage (principal); D62 Acute posthemorrhagic anemia; E87.1 Hypo-osmolality and hyponatremia; I10 Essential (primary) hypertension; E03.9 Hypothyroidism, unspecified; G89.29 Other chronic pain; F17.210 Nicotine dependence, cigarettes, uncomplicated; M54.5 Low back pain; K70.30 Alcoholic cirrhosis of liver without ascites; B19.20 Unspecified viral hepatitis C without hepatic coma; K29.70 Gastritis, unspecified, without bleeding; K21.0 Gastro-esophageal reflux disease with esophagitis; I25.2 Old myocardial infarction; Z86.73 Personal history of transient ischemic attack (TIA), and cerebral infarction without residual deficits; Z90.49 Acquired absence of other specified parts of digestive tract; Z90.710 Acquired absence of both cervix and uterus; Z88.8 Allergy status to other drugs, medicaments and biological substances
CPT/HCPCS: 36415; 36430; 76705; 80048; 80053; 82105; 85025; 86850; 86900; 86901; 86922; 88305; 88312; 90471; 90732; 96374; 96375; C9113; G0009; J2270; J2704; J3010; J3490; P9016